=== PATIENT | male | born 1940 | race Caucasian/White ===

== ENCOUNTER 2016-11-02 11:16 | Inpatient (IN) | payer MEDICARE ==
[2016-11-02] VITALS (10 sets, daily range): BP systolic 136–203; BP diastolic 75–103; PULSE 76–122; RESP 16–24; TEMP 97.6–98.2; O2SAT 90–98
[~2016-11-02] VITALS: Ht 172.7 cm; Wt 118.0 kg
[~2016-11-02 11:16] MED LIST: ADVA250A INH; ALBU0.086 INH; ALBU17I INH; AMLO5TAB22 PO; ATEN-100 PO; ATOR10 PO; COZA50TA PO; DONE5TAB14 PO; HYDR-3129 PO; MEDR4PAK3 PO; PROS5TAB2 PO; TAMS0.4C67 PO; XANA1TAB6 PO; ZITH250T PO
[2016-11-02] MEDS ORDERED: RESP: ALBUTEROL 2.5 MG/IPRATROPIUM 0.5 MG NEB (SCH) INH ONE (11:45)
[2016-11-02] MEDS ORDERED: SODIUM CHLORIDE 0.9% FLUSH 10 ML FLUSH IVF PRN (11:45)
[2016-11-02] MEDS ORDERED: methylPREDNISolone SOD SUCC 125 MG/2 ML VIAL IVP ONE (11:45)
--- NOTE | 2016-11-02 11:52 | PD ---
HPI Chief Complaint: Respiratory Symptoms Time Seen by Provider: 11:34 Travel History International Travel<30 days: No Contact w/Intl Traveler<30days: No Traveled to known affect area: No History of Present Illness HPI This is a 76 year old gentleman with history of hypertension, hyperlipidemia, COPD, chronic back pain, presents today with complaints of progressive shortness of breath. The patient states he has walking pneumonia and has been on 2 different Z-Eric. He states he still having difficulty breathing. He reports a productive cough with yellow-green phlegm. He denies any fevers but does state that he has had sweats. He denies any chest pain, chest pressure. He does use a nebulizer at home however this has not helped. He has both state that he has had progressive shortness of breath over the last year and a half. They quit to being due to him changing from a stronger narcotic pain medicine to a lower potency medicine. No other complaints time my examination. PFSH Past Medical History COPD: Yes Hypertension: Yes Medical other: Yes (BPH) Respiratory: Yes (COPD) Influenza Vaccination: Yes Past Surgical History Appendectomy: Yes Social History Alcohol Use: No (FORMERLY (SOCIALLY)) Tobacco Use: No (QUIT 7 YEARS AGO) Substance Use: No Allergies-Medications (Allergen,Severity, Reaction): Coded Allergies: No Known Allergies (Unverified , 11/02/16) Reported Meds & Prescriptions Reported Meds & Active Scripts Active Reported Tamsulosin (Tamsulosin HCl) 0.4 Mg Cap 0.4 Mg PO HS Albuterol Neb (Albuterol Sulfate) 2.5 Mg/3 Ml Neb 2.5 Mg NEB Q4HR PRN Xanax (Alprazolam) 1 Mg Tab 1 Mg PO BID PRN Finasteride 5 Mg Tab 5 Mg PO DAILY Do not crush. Lipitor (Atorvastatin Calcium) 20 Mg Tab 20 Mg PO HS Tylenol-Codeine #4 (Acetaminophen-Codeine) 300-60 mg Tab 1 Tab PO Q4H PRN Review of Systems Except as stated in HPI: all other systems reviewed are Neg General / Constitutional: No: Fever HENT: No: Headaches, Lightheadedness Cardiovascular: No: Chest Pain or Discomfort, Palpitations Respiratory: Positive: Cough (productive yellow-green phlegm), Shortness of Breath, Wheezing Gastrointestinal: No: Nausea, Vomiting, Abdominal Pain Musculoskeletal: Positive: Pain (chronic back pain), No: Weakness Neurologic: No: Weakness, Dizziness, Headache Psychiatric: Positive: Anxiety (patient reports history of anxiety) Physical Exam Narrative GENERAL: Well-nourished, well-developed patient, in moderate respiratory discomfort. SKIN: Focused skin assessment warm/dry. HEAD: Normocephalic/atraumatic. EYES: No scleral icterus. No injection or drainage. NECK: Supple, trachea midline. CARDIOVASCULAR: Regular rate and rhythm without murmurs, gallops, or rubs. RESPIRATORY: Decreased breath sounds bilaterally. Minimal air exchange in the upper airways. No wheezes appreciated however there was minimal air exchange. GASTROINTESTINAL: Abdomen soft, non-tender, nondistended. MUSCULOSKELETAL: No cyanosis, or edema. NEUROLOGICAL: Awake and alert. Cranial nerves II through XII intact. Motor grossly within normal limits. Five out of 5 muscle strength in all muscle groups. Normal speech. Data Data Last Documented VS Vital Signs Date Time Temp Pulse Resp B/P Pulse Ox O2 Delivery O2 Flow Rate FiO2 11/02/16 12:30 94 2 11/02/16 12:30 21 11/02/16 11:57 99 24 165/84 Room Air 11/02/16 11:20 97.8 Orders Complete Blood Count With Diff (11/02/16 11:40) Basic Metabolic Panel (Bmp) (11/02/16 11:40) Ckmb (Isoenzyme) Profile (11/02/16 11:40) Troponin I (11/02/16 11:40) Arterial Blood Gas (Abg) (11/02/16 11:40) Iv Access Insert/Monitor (11/02/16 11:40) Electrocardiogram (11/02/16 11:40) Ecg Monitoring (11/02/16 11:40) Oximetry (11/02/16 11:40) Oxygen Administration (11/02/16 11:40) Chest, Pa & Lat (11/02/16 11:40) Sodium Chloride 0.9% Flush (Ns Flush) (11/02/16 11:45) Methylprednisolone So Succ Inj (Solumedr (11/02/16 11:45) Albuterol-Ipratropium Neb (Duoneb Neb) (11/02/16 11:45) Albuterol Neb (Albuterol Neb) (11/02/16 11:45) CKMB (11/02/16 11:52) CKMB% (11/02/16 11:52) Thyroid Stimulating Hormone (11/02/16 13:23) Admit Order (Ed Use Only) (11/02/16 13:24) Labs Laboratory Tests Test 11/02/16 11/02/16 11:40 11:52 Blood Gas Puncture Site LT RADIAL Blood Gas Patient Temperature 98.6 Blood Gas HCO3 27 mmol/L Blood Gas Base Excess 3.2 mmol/L Blood Gas Oxygen Saturation 94 % Arterial Blood pH 7.45 Arterial Blood Partial 40 mmHg Pressure CO2 Arterial Blood Partial 70 mmHG Pressure O2 Arterial Blood Oxygen Content 18.0 Vol % Arterial Blood 1.6 % Carboxyhemoglobin Arterial Blood Methemoglobin 0.4 % Blood Gas Hemoglobin 13.7 G/DL Oxygen Delivery Device RA White Blood Count 7.8 TH/MM3 Red Blood Count 4.37 MIL/MM3 Hemoglobin 13.6 GM/DL Hematocrit 41.1 % Mean Corpuscular Volume 94.1 FL Mean Corpuscular Hemoglobin 31.2 PG Mean Corpuscular Hemoglobin 33.2 % Concent Red Cell Distribution Width 12.8 % Platelet Count 179 TH/MM3 Mean Platelet Volume 8.7 FL Neutrophils (%) (Auto) 84.0 % Lymphocytes (%) (Auto) 8.2 % Monocytes (%) (Auto) 5.5 % Eosinophils (%) (Auto) 1.9 % Basophils (%) (Auto) 0.4 % Neutrophils # (Auto) 6.6 TH/MM3 Lymphocytes # (Auto) 0.6 TH/MM3 Monocytes # (Auto) 0.4 TH/MM3 Eosinophils # (Auto) 0.2 TH/MM3 Basophils # (Auto) 0.0 TH/MM3 CBC Comment DIFF FINAL Differential Comment Sodium Level 140 MEQ/L Potassium Level 4.0 MEQ/L Chloride Level 106 MEQ/L Carbon Dioxide Level 29.4 MEQ/L Anion Gap 5 MEQ/L Blood Urea Nitrogen 13 MG/DL Creatinine 1.04 MG/DL Estimat Glomerular Filtration 69 ML/MIN Rate Random Glucose 134 MG/DL Calcium Level 8.9 MG/DL Total Creatine Kinase 107 U/L Creatine Kinase MB 1.4 NG/ML Troponin I LESS THAN 0.02 NG/ML MDM Medical Decision Making Medical Screen Exam Complete: Yes Emergency Medical Condition: Yes Differential Diagnosis COPD exacerbation versus pneumonia versus anemia Narrative Course 76 year-old gentleman with history of COPD, hypertension, hyperlipidemia, who presents today with worsening shortness of breath. The patient had very little air movement on initial examination. He was given Solu-Medrol 125 mg I V times one dose. He's also been given nebulizer treatments 3 with the first is a DuoNeb. EKG shows A. fib which is new per patient and . Given this, and his COPD, I'm recommending that he be admitted to the hospitalist service. There is a call out to the [facility] hospitalist service for admission. We will continue the nebulizer treatments and steroids. There is a thyroid hormone level pending at this time. Diagnosis Primary Impression: New onset atrial fibrillation Additional Impression: COPD exacerbation Mike Jimenez MD Nov 02, 2016 11:52 Diagnosis Primary Impression: New onset atrial fibrillation Additional Impression: COPD exacerbation Mike Jimenez MD Nov 02, 2016 11:52
[2016-11-02] MEDS: RESP: ALBUTEROL 2.5 MG/3 ML NEB (SCH) INH ×2 (12:15→12:16)
[2016-11-02 12:19] LABS: AUTOMATED NEUTROPHIL # 6.6 TH/MM3 (1.8-7.7); BASOPHIL % 0.4 % (0.0-2.0); EOSINOPHIL # 0.2 TH/MM3 (0-0.4); EOSINOPHIL % 1.9 % (0.0-4.0); HEMATOCRIT 41.1 % (39.0-51.0); HEMO FLAGS DIFF FINAL; LYMPH % 8.2 % (9.0-44.0); LYMPHOCYTE # 0.6 TH/MM3 (1.0-4.8); MEAN CELL VOLUME 94.1 FL (80.0-100.0); MEAN CORPUSCULAR HEMOGLOBIN 31.2 PG (27.0-34.0); MEAN CORPUSCULAR HGB CONC 33.2 % (32.0-36.0); MONO % 5.5 % (0.0-8.0); PLATELET COUNT 179 TH/MM3 (150-450); RED BLOOD COUNT 4.37 MIL/MM3 (4.50-5.90); RED CELL DISTRIBUTION WIDTH 12.8 % (11.6-17.2); WHITE BLOOD COUNT 7.8 TH/MM3 (4.0-11.0)
[2016-11-02 12:33] LABS: BLOOD GAS BASE EXCESS 3.2 mmol/L (-2-2); BLOOD GAS CARBOXYHEMOGLOBIN 1.6 % (0-4); BLOOD GAS HCO3 27 mmol/L (22-26); BLOOD GAS METHEMOGLOBIN 0.4 % (0-2); BLOOD GAS O2 HGB SATURATION 94 % (90-100); BLOOD GAS PCO2 40 mmHg (38-42); BLOOD GAS PO2 70 mmHG (61-120); BLOOD GAS TOTAL HGB 13.7 G/DL (12.0-16.0); CRITICAL VALUE NO; DRAW SITE LT RADIAL; NUMBER OF ARTERIAL PUNCTURES 2; OXYGEN DEVICE RA; STAT YES; TEMP CORR TO 98.6; ULNAR PULSE Y
[2016-11-02 12:37] LABS: ANION GAP 5 MEQ/L (5-15); BICARBONATE 29.4 MEQ/L (21.0-32.0); BLOOD UREA NITROGEN 13 MG/DL (7-18); CHLORIDE 106 MEQ/L (98-107); GLOMERULAR FILTRATION RATE 69 ML/MIN (>89); SODIUM (NA) 140 MEQ/L (136-145)
[2016-11-02 12:40] LABS: CREATINE KINASE 107 U/L (39-308)
[2016-11-02 12:51] LABS: CKMB 1.4 NG/ML (0.5-3.6)
--- NOTE | 2016-11-02 13:52 | RADRPT ---
EXAM DATE/TIME: 11/02/2016 12:51 [place] COMPARISON: CHEST SINGLE AP, April 27, 2013, 11:30. INDICATIONS : Shortness of breath. MEDICAL HISTORY : Hypertension. Chronic obstructive pulmonary disease. Smoker. Pneumonia. SURGICAL HISTORY : Appendectomy. ENCOUNTER: Initial ACUITY: 1 week PAIN SCORE: 0/10 LOCATION: Bilateral chest FINDINGS: The heart is moderately enlarged. The central bronchial markings are fairly well delineated. There are linear opacities in the midlungs bilaterally which are chronic and were present on prior chest x- ray of March 2013. No focal consolidative infiltrate seen. No evidence of pneumothorax. Both c ostophrenic angles are well delineated. CONCLUSION: Cardiomegaly and scarring in the midlungs bilaterally, stable from 2012. No new focal infiltrates se en. Tyson Peña MD on November 02, 2016 at 13:49 Board Certified Radiologist. This report was verified electronically.
[2016-11-02] MEDS ORDERED: ONDANSETRON HCL 4 MG/2 ML VIAL IVP PRN (14:00)
[2016-11-02] MEDS ORDERED: ACETAMINOPHEN 325 MG TAB PO PRN (14:00)
[2016-11-02] MEDS ORDERED: SODIUM CHLORIDE 0.9% FLUSH 10 ML FLUSH IV FLUSH PRN (14:00)
[2016-11-02] MEDS ORDERED: ENOXAPARIN SODIUM 40 MG/0.4 ML SYRINGE SQ SCH (14:00)
[2016-11-02] MEDS ORDERED: NALOXONE HCL 0.4 MG/ML AMP IV PRN (14:00)
[2016-11-02] MEDS ORDERED: LIPI20TA PO (14:33)
[2016-11-02] MEDS ORDERED: TYLETAB36 PO (14:33)
[2016-11-02] MEDS ORDERED: TAMS0.4C4 PO (14:33)
[2016-11-02] MEDS ORDERED: FINA5TAB2 PO (14:33)
[2016-11-02] MEDS ORDERED: XANA1TAB2 PO (14:33)
[2016-11-02] MEDS ORDERED: ALBU0.08 NEB (14:33)
--- NOTE | 2016-11-02 14:53 | HHI.HP ---
[facility] Miguel Aleman, DO Admission Diagnosis New onset atrial firbrillation, copd exacerbation. Diagnoses: Chief Complaint: sob Travel History International Travel<30 Days: No Contact w/Intl Traveler <30 Da: No Traveled to Known Affected Are: No History of Present Illness This is a 76-year-old male with past medical history hypertension, hyperlipidemia, COPD on oxygen at night, chronic back pain. Patient presented to the emergency room with progressive shortness of breath for the last month and half. According to the patient, he was diagnosed with "walking pneumonia" by primary care physician and has been treated with 2 different Z-Paks. Indicates he has continued to feel poorly, more short of breath with any activity. He has a cough that is productive of yellow-green phlegm, he has chills at times but no fever. Has occasional chest pain that is relieved with [place] and burping. Denies any radiation of chest discomfort. He has been using nebulizers at home without any relief. Patient also endorses that he was recently transitioned from [place] to Tylenol No. 4 for chronic back pain and thinks that this lower potency of medications may have exacerbated his condition. Patient is difficult to examine, he's very anxious and at one point during the examination asked me to leave and not to examine him. During emergency room evaluation, patient was evaluated, vital signs were stable, temperature 90.7 a, pulse rate 99, respiratory rate 24, blood pressure 165/84, sats 93% on room air. ABGs were completed, pH 7.45, PCO2 40, PA O2 70, bicarbonate 27. CBC was essentially unremarkable, WBC 7.8, hemoglobin 13.6, hematocrit 41.1. BMP unremarkable. Troponin was negative. Chest x-ray significant for cardiomegaly, scarring in the mid lungs bilaterally stable from 2013. No new focal infiltrates. EKG was completed, patient was noted in A. fib , heart rate 97. This is a new onset, patient denies any prior history of dysrhythmia. Patient was given IV steroids and DuoNeb's. Patient wants to get moved out of the emergency room to a regular bed. He is complaining of back pain and increasing anxiety. Patient is admitted for further evaluation and treatment. Review of Systems ROS Limitations: Clinical Condition (anxious ), Uncooperative, Refused Endocrine: DENIES: Heat/cold intolerance, Polydipsia, Polyuria, Polyphagia Respiratory: COMPLAINS OF: Cough, Wheezing, Shortness of breath Cardiovascular: COMPLAINS OF: Chest pain Musculoskeletal: COMPLAINS OF: Back pain Psychiatric: COMPLAINS OF: Anxiety Past Family Social History Past Medical History HTN-doesn't take meds Enlarged prostate HLP COPD BPH Chronic back pain Anxiety Past Surgical History Back surgery x 4 Appendectomy Reported Medications Reported Meds & Active Scripts Active Reported Tamsulosin (Tamsulosin HCl) 0.4 Mg Cap 0.4 Mg PO HS Albuterol Neb (Albuterol Sulfate) 2.5 Mg/3 Ml Neb 2.5 Mg NEB Q4HR PRN Xanax (Alprazolam) 1 Mg Tab 1 Mg PO BID PRN Finasteride 5 Mg Tab 5 Mg PO DAILY Do not crush. Lipitor (Atorvastatin Calcium) 20 Mg Tab 20 Mg PO HS Tylenol-Codeine #4 (Acetaminophen-Codeine) 300-60 mg Tab 1 Tab PO Q4H PRN Allergies: Coded Allergies: No Known Allergies (Unverified , 11/02/16) Active Ordered Medications Inpatient Medications Acetaminophen (Tylenol) 650 mg Q4H PRN PO TEMP > 100.4; Start 11/02/16 at 14:00 Albuterol Sulfate (Albuterol Neb) 2.5 mg Q15M INH Last administered on t 12:16; Start 11/02/16 at 11:45; Stop 11/02/16 at 12:01; Status DC Albuterol/ Ipratropium (Duoneb Neb) 1 ampule Q8HR NEB NEB ; Start 11/02/16 at 16 :00 Atorvastatin Calcium (Lipitor) 20 mg HS PO ; Start 11/02/16 at 21:00 Azithromycin/ Sodium Chloride (Zithromax Inj/ NS 250 ml Inj) 250 ml @ 250 mls/ hr Q24H IV ; Start 11/02/16 at 14:00 Ceftriaxone Sodium 1000 mg/ Sodium Chloride 100 ml @ 200 mls/hr Q24H IV ; Start 11/02/16 at 15:00 Enoxaparin Sodium (Lovenox Inj) 40 mg Q24H SQ ; Start 11/02/16 at 14:00 Finasteride (Proscar) 5 mg DAILY PO ; Start 11/03/16 at 09:00 Methylprednisolone Sodium Succinate (SoluMEDROL INJ) 125 mg ONCE ONCE IVP Last administered on 11/02/16t 11:56; Start 11/02/16 at 11:45; Stop 11/02/16 at 11: 46; Status DC Methylprednisolone Sodium Succinate 40 mg 40 mg Q6HR IV PUSH ; Start 11/02/16 at 18:00 Naloxone HCl (Narcan Inj) 0.4 mg UNSCH PRN IV SEE LABEL COMMENTS; Start at 14:00 Ondansetron HCl (Zofran Inj) 4 mg Q6H PRN IVP NAUSEA OR VOMITING; Start at 14:00 Sodium Chloride (NS Flush) 2 ml BID IV FLUSH ; Start 11/02/16 at 21:00 Tamsulosin HCl (Flomax) 0.4 mg HS PO ; Start 11/02/16 at 21:00 Family History Unable to obtain Social History , lives with . Quit smoking 15 years ago. No ETOH, no substance abuse Physical Exam Vital Signs Vital Signs Date Time Temp Pulse Resp B/P Pulse Ox O2 Delivery O2 Flow Rate FiO2 11/02/16 14:51 76 16 168/85 95 11/02/16 12:30 93 21 11/02/16 11:57 99 24 165/84 90 Room Air 11/02/16 11:57 24 90 Room Air 11/02/16 11:20 97.8 118 24 203/103 94 Physical Exam GENERAL: This is a obese, very anxious male. SKIN: No rashes, ecchymoses or lesions. Cool and dry. HEAD: Atraumatic. Normocephalic. No temporal or scalp tenderness. EYES: Pupils equal round and reactive. Extraocular motions intact. No scleral icterus. No injection or drainage. ENT: Nose without bleeding, purulent drainage or septal hematoma. Throat without erythema, tonsillar hypertrophy or exudate. Uvula midline. Airway patent. NECK: Trachea midline. No JVD or lymphadenopathy. Supple, nontender, no meningeal signs. CARDIOVASCULAR: S1 and S2, irregularly irregular. Unable to detect any murmurs rubs or gallops. RESPIRATORY: Diminished, mild expiratory wheezing. GASTROINTESTINAL: Abdomen soft, non-tender, nondistended. No hepato-splenomegaly , or palpable masses. No guarding. MUSCULOSKELETAL: Extremities without clubbing, cyanosis, or edema. No joint tenderness, effusion, or edema noted. No calf tenderness. Negative Homans sign bilaterally. NEUROLOGICAL: Awake, alert oriented 3. No focal deficits. Very anxious. Laboratory Laboratory Tests Test 11/02/16 11/02/16 11:40 11:52 Blood Gas Puncture Site LT RADIAL Blood Gas Patient Temperature 98.6 Blood Gas HCO3 27 Blood Gas Base Excess 3.2 Blood Gas Oxygen Saturation 94 Arterial Blood pH 7.45 Arterial Blood Partial 40 Pressure CO2 Arterial Blood Partial 70 Pressure O2 Arterial Blood Oxygen Content 18.0 Arterial Blood 1.6 Carboxyhemoglobin Arterial Blood Methemoglobin 0.4 Blood Gas Hemoglobin 13.7 Oxygen Delivery Device RA White Blood Count 7.8 Red Blood Count 4.37 Hemoglobin 13.6 Hematocrit 41.1 Mean Corpuscular Volume 94.1 Mean Corpuscular Hemoglobin 31.2 Mean Corpuscular Hemoglobin 33.2 Concent Red Cell Distribution Width 12.8 Platelet Count 179 Mean Platelet Volume 8.7 Neutrophils (%) (Auto) 84.0 Lymphocytes (%) (Auto) 8.2 Monocytes (%) (Auto) 5.5 Eosinophils (%) (Auto) 1.9 Basophils (%) (Auto) 0.4 Neutrophils # (Auto) 6.6 Lymphocytes # (Auto) 0.6 Monocytes # (Auto) 0.4 Eosinophils # (Auto) 0.2 Basophils # (Auto) 0.0 CBC Comment DIFF FINAL Differential Comment Sodium Level 140 Potassium Level 4.0 Chloride Level 106 Carbon Dioxide Level 29.4 Anion Gap 5 Blood Urea Nitrogen 13 Creatinine 1.04 Estimat Glomerular Filtration 69 Rate Random Glucose 134 Calcium Level 8.9 Total Creatine Kinase 107 Creatine Kinase MB 1.4 Troponin I LESS THAN 0.02 Result Diagram: 11/02/16 1152 11/02/16 1152 Assessment and Plan Problem List: (1) COPD exacerbation (2) New onset atrial fibrillation (3) HTN (hypertension) (4) Hyperlipidemia (5) Chronic back pain (6) Anxiety Assessment and Plan Admit to Dr. Boss 76-year-old male presented to the emergency room with progressive shortness of breath, has underlying history of COPD oxygen dependent at night. Found with new onset A. fib. COPD exacerbation, failure of outpatient therapy, possible bronchitis -Continue with IV steroids, Solu-Medrol 40 mg IV every 6 Continue with empiric antibiotics Mucinex 600 mg by mouth twice a day Robitussin when necessary New-onset A. fib, with x-ray findings of cardiomegaly. Heart rate stable now initially 118, now 76. 2-D echo has been ordered Continue with serial cardiac enzymes Cardiology has been consulted -We'll check TSH Chronic back pain [place] will be started when necessary Anxiety Xanax when necessary has been ordered. Hyperlipidemia Continue with statins Hypertension, Patient not on any medications -We will add Clonidine when necessary Lovenox for DVT prophylaxis Home medications reviewed, initiated as indicated Plan of care has been discussed with the patient, attending and registered nurse. Further management of the patient will be dependent on the hospital course This patient was seen by myself and Dr. Boss, this H&P is written on her behalf Physician Certification 2 Midnight Certification Type: Admission for Inpatient Services Order for Inpatient Services The services are ordered in accordance with Medicare regulations or non- Medicare payer requirements, as applicable. In the case of services not specified as inpatient-only, they are appropriately provided as inpatient services in accordance with the 2-midnight benchmark. Estimated LOS (days): 2 2 days is the estimated time the patient will need to remain in the hospital, assuming treatment plan goals are met and no additional complications. Post-Hospital Plan: Home Problem Qualifiers (1) HTN (hypertension): Qualified Code: I10 - Essential hypertension (2) Hyperlipidemia: Qualified Code: E78.5 - Hyperlipidemia, unspecified hyperlipidemia type (3) Chronic back pain: Qualified Code: M54.9 - Chronic back pain, unspecified back location, unspecified back pain laterality Uzma Esqueda Nov 02, 2016 14:52
[2016-11-02] MEDS: RESP: ALBUTEROL 2.5 MG/IPRATROPIUM 0.5 MG NEB (SCH) NEB ×2 (15:07→23:26)
[2016-11-02] MEDS ORDERED: guaiFENesin/DEXTROMETHORPHAN 200 MG/20 MG/10 ML CUP PO PRN (15:15)
[2016-11-02] MEDS ORDERED: cloNIDine HCL 0.1 MG TAB PO PRN (15:30)
[2016-11-02] MEDS: AZITHROMYCIN INJ 500 MG in SODIUM CHLOR 0.9% 250 ML INJ 250 ML IV SCH (15:47)
[2016-11-02] MEDS: ACETAMINOPHEN/HYDROcodone 325 MG/5 MG TAB PO PRN ×2 (16:14→21:02)
[2016-11-02] MEDS: ALPRAZolam 0.5 MG TAB PO PRN ×3 (16:14→23:14)
[2016-11-02] MEDS ORDERED: DILTIAZEM INJ 125 MG in SODIUM CHLORIDE 0.9% INJ 100 ML IV SCH (16:30)
[2016-11-02] MEDS ORDERED: DILTIAZEM HCL 25 MG/5 ML VIAL IVP ONE (16:30)
[2016-11-02] MEDS: cefTRIAXone INJ 1,000 MG in SODIUM CHLORIDE 0.9% INJ 100 ML IV SCH (16:49)
[2016-11-02] MEDS: methylPREDNISolone SOD SUCC 40 MG/1 ML VIAL IV PUSH SCH ×2 (17:53→23:15)
[2016-11-02] MEDS: DILTIAZEM HCL 60 MG TAB PO SCH ×2 (17:54→23:14)
[2016-11-02] MEDS: FUROSEMIDE 40 MG/4 ML VIAL IV PUSH SCH (17:54)
[2016-11-02] MEDS: RESP: ALBUTEROL 2.5 MG/IPRATROPIUM 0.5 MG NEB (PRN) NEB (18:15)
[2016-11-02] MEDS: TAMSULOSIN HCL 0.4 MG CAP PO SCH (20:59)
[2016-11-02] MEDS: ATORVASTATIN 20 MG TAB PO SCH (20:59)
[2016-11-02] MEDS: guaiFENesin E.R. 600 MG TAB PO SCH (20:59)
[2016-11-02] MEDS: ENOXAPARIN SODIUM 100 MG/ML SYRINGE SQ SCH (21:00)
[2016-11-02] MEDS: SODIUM CHLORIDE 0.9% FLUSH 10 ML FLUSH IV FLUSH SCH (21:00)
[2016-11-03] VITALS (10 sets, daily range): BP systolic 150–161; BP diastolic 74–92; PULSE 87–120; RESP 18–20; TEMP 97.9–98.7; O2SAT 92–98
[2016-11-03] MEDS: RESP: ALBUTEROL 2.5 MG/IPRATROPIUM 0.5 MG NEB (PRN) NEB ×2 (04:14→19:39)
[2016-11-03] MEDS: methylPREDNISolone SOD SUCC 40 MG/1 ML VIAL IV PUSH SCH (05:28)
[2016-11-03] MEDS: DILTIAZEM HCL 60 MG TAB PO SCH ×4 (05:28→23:34)
[2016-11-03] MEDS: ACETAMINOPHEN/HYDROcodone 325 MG/5 MG TAB PO PRN ×2 (07:06→17:42)
--- NOTE | 2016-11-03 07:39 | MB ---
cc: JOSESITO VELEZ MD DATE OF CONSULTATION 11/02/2016 REASON FOR CONSULTATION Atrial fibrillation HISTORY OF PRESENT ILLNESS This is a 76-year-old gentleman with a history hypertension, hyperlipidemia, COPD, chronic oxygen at night and back pain who presents to the emergency department with progressive shortness of breath. He has been treated in the outpatient setting for progressive walking pneumonia with two separate antibiotic regimens. He had no symptomatic improvement and continues to have coughing with productive sputum and came into the emergency department. He does look like he is in mild distress with his respiratory distress and it was noted to be a new onset atrial fibrillation unknown duration with tachycardia. He states that in the past, he has had a prior chest x-ray which was common and not from cardiomegaly. He says he thinks he saw Dr. Griffith at [facility] back a few years ago and had an outpatient echocardiogram, but he does not know the results. He denies any chest pain. PAST MEDICAL HISTORY 1. Hypertension 2. BPH 3. Hyperlipidemia 4. COPD 5. Chronic back pain 6. Anxiety MEDICATIONS 1. Tamsulosin 2. Albuterol 3. Xanax 4. Finasteride 5. Lipitor 6. Tylenol ALLERGIES NO KNOWN DRUG ALLERGIES. REVIEW OF SYSTEMS A 12-point review of some was performed and is negative unless otherwise as noted in the history of present illness. VITAL SIGNS: Temperature is 97, pulse 112, blood pressure 165/81 mmHg. GENERAL: Alert and oriented x3 in mild distress. HEENT: Exam shows pupils are reactive to light and accommodation. Extraocular movements are intact. NECK: No elevation in jugular venous distension. No thyromegaly or lymphadenopathy. No carotid bruits. LUNGS: Clear to auscultation bilaterally. Decreased breath sounds throughout. Mild bibasilar crackles. CARDIOVASCULAR: Irregular irregular rhythm, 1/6 systolic murmur, distant heart sounds. ABDOMEN: Exam is obese. EXTREMITIES: Show no clubbing, cyanosis or edema. Good peripheral pulses. NEUROLOGIC: Cranial nerves intact. Motor and sensory grossly intact. LABORATORY DATA WBC is 7.8, hemoglobin 13.6, platelet count is 179. Sodium 140, potassium 4.0, BUN is 13, creatinine is 1.03, troponin is negative. Electrocardiogram shows atrial fibrillation, no significant ischemic changes. ASSESSMENT 1. Atrial fibrillation, probable new onset although unknown duration. 2. Hypertension 3. Hyperlipidemia 4. COPD 5. Pneumonia PLAN His atrial fibrillation is likely secondary to increased adrenergic tone with his respiratory distress. X-ray reads cardiomegaly. He has a prior history of apparent cardiomegaly and a prior echocardiogram, we do not know the results of. We will check a 2-D echocardiogram now. I suspect his respiratory symptoms are primarily infectious etiology, although he may have some bibasilar crackles in the setting of cardiomegaly may have also some component of congestive heart failure. I am going to give him a single dose of diuretic to see if we can improve his symptoms as he appears to be in mild distress. I am also going to add Cardizem p.o. and a Cardizem drip as needed for his tachycardia. I am going to increase his Lovenox to full therapeutic dosing. We will have to have a discussion with him about anticoagulation. His CHADS VASc is 3. MD JACQUELIN Kong/URMILA /4:36 PM /7:22 AM
[2016-11-03] MEDS: RESP: ALBUTEROL 2.5 MG/IPRATROPIUM 0.5 MG NEB (SCH) NEB ×2 (07:41→15:28)
--- NOTE | 2016-11-03 08:23 | PD.CARD.PN ---
Subjective Subjective Remarks breathing improved (Kailash Ochoa) Subjective Remarks (Mike Pacheco MD) Objective Vital Signs / I&O Vital Signs Date Time Temp Pulse Resp B/P Pulse Ox O2 Delivery O2 Flow Rate FiO2 11/03/16 07:56 108 11/03/16 07:41 94 21 11/03/16 03:58 97.9 114 20 159/86 95 11/03/16 03:57 87 11/02/16 23:25 98.2 100 24 136/75 97 11/02/16 20:13 97.9 94 24 150/77 96 11/02/16 19:22 93 21 11/02/16 18:23 168/94 11/02/16 16:58 97.6 122 24 164/94 97 11/02/16 16:16 112 20 165/81 98 Nasal Cannula 2 11/02/16 14:51 76 16 168/85 95 11/02/16 12:30 94 2 11/02/16 12:30 93 21 11/02/16 11:57 99 24 165/84 90 Room Air 11/02/16 11:57 24 90 Room Air 11/02/16 11:20 97.8 118 24 203/103 94 I/O 11/02/16 11/02/16 11/02/16 11/03/16 11/03/16 11/03/16 07:00 15:00 23:00 07:00 15:00 23:00 Intake Total 600 ml 0 ml 0 ml Output Total 250 ml 150 ml Balance 350 ml -150 ml 0 ml Intake Oral 600 ml 0 ml IV Total 0 ml Output Urine Total 250 ml 150 ml # Bowel Movements 0 0 Physical Exam GENERAL: Well-nourished, well-developed patient in no apparent distress. NECK: No JVD. No carotid bruit. CARDIOVASCULAR: IR IR tachy. S1/S2 no murmur, rub, or gallop. RESPIRATORY: No accessory muscle use. diminished to auscultation. Breath sounds equal bilaterally. GASTROINTESTINAL: Abdomen soft, non-tender, nondistended. MUSCULOSKELETAL: Extremities without clubbing, cyanosis, or edema. Laboratory Laboratory Tests Test 11/02/16 11/02/16 11/02/16 11/03/16 11:40 11:52 15:03 00:20 Blood Gas Puncture Site LT RADIAL Blood Gas Patient Temperature 98.6 Blood Gas HCO3 27 mmol/L Blood Gas Base Excess 3.2 mmol/L Blood Gas Oxygen Saturation 94 % Arterial Blood pH 7.45 Arterial Blood Partial 40 mmHg Pressure CO2 Arterial Blood Partial 70 mmHG Pressure O2 Arterial Blood Oxygen Content 18.0 Vol % Arterial Blood 1.6 % Carboxyhemoglobin Arterial Blood Methemoglobin 0.4 % Blood Gas Hemoglobin 13.7 G/DL Oxygen Delivery Device RA White Blood Count 7.8 TH/MM3 Red Blood Count 4.37 MIL/MM3 Hemoglobin 13.6 GM/DL Hematocrit 41.1 % Mean Corpuscular Volume 94.1 FL Mean Corpuscular Hemoglobin 31.2 PG Mean Corpuscular Hemoglobin 33.2 % Concent Red Cell Distribution Width 12.8 % Platelet Count 179 TH/MM3 Mean Platelet Volume 8.7 FL Neutrophils (%) (Auto) 84.0 % Lymphocytes (%) (Auto) 8.2 % Monocytes (%) (Auto) 5.5 % Eosinophils (%) (Auto) 1.9 % Basophils (%) (Auto) 0.4 % Neutrophils # (Auto) 6.6 TH/MM3 Lymphocytes # (Auto) 0.6 TH/MM3 Monocytes # (Auto) 0.4 TH/MM3 Eosinophils # (Auto) 0.2 TH/MM3 Basophils # (Auto) 0.0 TH/MM3 CBC Comment DIFF FINAL Differential Comment Sodium Level 140 MEQ/L Potassium Level 4.0 MEQ/L Chloride Level 106 MEQ/L Carbon Dioxide Level 29.4 MEQ/L Anion Gap 5 MEQ/L Blood Urea Nitrogen 13 MG/DL Creatinine 1.04 MG/DL Estimat Glomerular Filtration 69 ML/MIN Rate Random Glucose 134 MG/DL Calcium Level 8.9 MG/DL Total Creatine Kinase 107 U/L Creatine Kinase MB 1.4 NG/ML Troponin I LESS THAN 0.02 LESS THAN 0.02 LESS THAN 0.02 NG/ML NG/ML NG/ML Thyroid Stimulating Hormone 0.607 uIU/ML 3rd Gen (Kailash Ochoa) Assessment and Plan Problem List: (1) New onset atrial fibrillation Assessment and Plan HR is not controlled. Will add digoxin 125 mcg daily.I would avoid beta blockers in the face of his COPD. Will start Coumadin 5 mg daily and INR in 72 hours (Kailash Ochoa) Assessment and Plan breathing improved. more pulmonary than cardiac. change lasix to PO afib rvr - increase cardizem 90 q 6. convert to long acting upon DC. dig 0.25 mg daily. check dig level. anticoagulation - he is not interested in coumadin with INRs but will consider newer Novel agent. start Xarelto. DC planning for tomorrow FU PCP on DC (Mike Pacheco MD) Kailash Ochoa Nov 03, 2016 08:23 Mike Pacheco MD Nov 03, 2016 13:51
[2016-11-03] MEDS: ALPRAZolam 0.5 MG TAB PO PRN ×2 (08:37→17:42)
[2016-11-03] MEDS: FINASTERIDE 5 MG TAB PO SCH (08:38)
[2016-11-03] MEDS: SODIUM CHLORIDE 0.9% FLUSH 10 ML FLUSH IV FLUSH SCH ×2 (08:38→20:18)
[2016-11-03] MEDS: FUROSEMIDE 40 MG/4 ML VIAL IV PUSH SCH (08:38)
[2016-11-03] MEDS: guaiFENesin E.R. 600 MG TAB PO SCH ×2 (08:38→20:15)
[2016-11-03] MEDS: ENOXAPARIN SODIUM 100 MG/ML SYRINGE SQ SCH (08:38)
[2016-11-03] MEDS ORDERED: DIGOXIN 0.125 MG TAB PO SCH (09:00)
[2016-11-03] MEDS ORDERED: PNEUMOCOCCAL POLYVALENT INJ 25 MCG/0.5 ML SYR IM ONE (10:00)
--- NOTE | 2016-11-03 11:03 | HHI.PR ---
Subjective Subjective Remarks less sob no wheezing no cp anxiety slightly improved at times very angry with staff afib, HR 100s no fever Review of Systems Constitutional Constitutional Remarks 12 point ROS completed, negative except as noted above Vitals/Results Intake & Output 11/02/16 11/02/16 11/03/16 15:00 23:00 07:00 Intake Total 600 ml 0 ml Output Total 250 ml 150 ml Balance 350 ml -150 ml Intake Oral 600 ml 0 ml Output Urine Total 250 ml 150 ml # Bowel Movements 0 0 Vital Signs Vital Signs Date Time Temp Pulse Resp B/P Pulse Ox O2 Delivery O2 Flow Rate FiO2 11/03/16 08:00 98.1 106 18 153/74 92 11/03/16 07:56 108 11/03/16 07:41 94 21 11/03/16 03:58 97.9 114 20 159/86 95 11/03/16 03:57 87 11/02/16 23:25 98.2 100 24 136/75 97 11/02/16 20:13 97.9 94 24 150/77 96 11/02/16 19:22 93 21 11/02/16 18:23 168/94 11/02/16 16:58 97.6 122 24 164/94 97 11/02/16 16:16 112 20 165/81 98 Nasal Cannula 2 11/02/16 14:51 76 16 168/85 95 11/02/16 12:30 94 2 11/02/16 12:30 93 21 11/02/16 11:57 99 24 165/84 90 Room Air 11/02/16 11:57 24 90 Room Air 11/02/16 11:20 97.8 118 24 203/103 94 CBC/BMP: 11/02/16 1152 11/02/16 1152 Lab Results Laboratory Tests Test 11/02/16 11/02/16 11/02/16 11/03/16 11:40 11:52 15:03 00:20 Blood Gas Puncture Site LT RADIAL Blood Gas Patient Temperature 98.6 Blood Gas HCO3 27 mmol/L Blood Gas Base Excess 3.2 mmol/L Blood Gas Oxygen Saturation 94 % Arterial Blood pH 7.45 Arterial Blood Partial 40 mmHg Pressure CO2 Arterial Blood Partial 70 mmHG Pressure O2 Arterial Blood Oxygen Content 18.0 Vol % Arterial Blood 1.6 % Carboxyhemoglobin Arterial Blood Methemoglobin 0.4 % Blood Gas Hemoglobin 13.7 G/DL Oxygen Delivery Device RA White Blood Count 7.8 TH/MM3 Red Blood Count 4.37 MIL/MM3 Hemoglobin 13.6 GM/DL Hematocrit 41.1 % Mean Corpuscular Volume 94.1 FL Mean Corpuscular Hemoglobin 31.2 PG Mean Corpuscular Hemoglobin 33.2 % Concent Red Cell Distribution Width 12.8 % Platelet Count 179 TH/MM3 Mean Platelet Volume 8.7 FL Neutrophils (%) (Auto) 84.0 % Lymphocytes (%) (Auto) 8.2 % Monocytes (%) (Auto) 5.5 % Eosinophils (%) (Auto) 1.9 % Basophils (%) (Auto) 0.4 % Neutrophils # (Auto) 6.6 TH/MM3 Lymphocytes # (Auto) 0.6 TH/MM3 Monocytes # (Auto) 0.4 TH/MM3 Eosinophils # (Auto) 0.2 TH/MM3 Basophils # (Auto) 0.0 TH/MM3 CBC Comment DIFF FINAL Differential Comment Sodium Level 140 MEQ/L Potassium Level 4.0 MEQ/L Chloride Level 106 MEQ/L Carbon Dioxide Level 29.4 MEQ/L Anion Gap 5 MEQ/L Blood Urea Nitrogen 13 MG/DL Creatinine 1.04 MG/DL Estimat Glomerular Filtration 69 ML/MIN Rate Random Glucose 134 MG/DL Calcium Level 8.9 MG/DL Total Creatine Kinase 107 U/L Creatine Kinase MB 1.4 NG/ML Troponin I LESS THAN 0.02 LESS THAN 0.02 LESS THAN 0.02 NG/ML NG/ML NG/ML Thyroid Stimulating Hormone 0.607 uIU/ML 3rd Gen Physical Exam General General Appearance: Well Developed, Comfortable, Anxious, Obese Eyes Eye Exam: Pupils Equal, Pupils Reactive Ears & Nose Ears & Nose Exam: Nasal Mucosa [employer] Throat Throat Exam: Oral Mucosa [employer] & Moist Neck Neck Exam: Neck Supple, Trachea Midline Pulmonary Resp Exam: Decreased Bases, Diminished Breath Sounds, Poor Inspiratory Effort Cardiology CV Exam: Irregular, Arrhythmia, Tachycardia Gastrointestinal/Abdomen GI Exam: Soft, Non-Tender, Bowel Sounds Present, Non-Distended Musculoskeletal MS Exam: Joints Intact Integumentary Skin Exam: Warm, Dry Extremeties Extremities Exam: Pedal Pulses Palpable, Trace Edema Neurologic Neuro Exam: Alert, Awake, Oriented, Speech Clear, Moving All Extremities, No Focal Deficits Psychiatric Psych Exam: Appropriate Responses VTE Prophylaxis VTE Prophylaxis Meds: Coumadin, Lovenox Assessment/Plan Problem List: (1) New onset atrial fibrillation (2) Anxiety (3) Hyperlipidemia (4) HTN (hypertension) (5) COPD exacerbation (6) Chronic back pain (7) Cardiomegaly Assessment/Plan 76-year-old male presented to the emergency room with progressive shortness of breath, has underlying history of COPD oxygen dependent at night. Found with new onset A. fib. COPD exacerbation, failure of outpatient therapy, possible bronchitis -change to PO steroids Continue with empiric antibiotics Mucinex 600 mg by mouth twice a day Robitussin when necessary New-onset A. fib, with x-ray findings of cardiomegaly. Heart rate 100s, afib. Poss. component of CHF -continue with Lasix 40 mg IV daily 2-D echo has been ordered cardiac enzymes negative -appreciate cardiology input, Dr. Pacheco evaluated. Recommends anticoagulation, full dose Lovenox for now and start Coumadin today. Follow INR today. -pharmacy to dose coumadin, INR daily -continue Dig and Cardizem PO -TSH okay Chronic back pain [place] will be started when necessary Anxiety Xanax when necessary has been ordered. Hyperlipidemia Continue with statins Hypertension, Patient not on any medications - Clonidine when necessary Lovenox/Coumadin for DVT prophylaxis continue with above treatment HR not controlled yet pt. doesn't appear to have good insight, wants to know if he is going home today. Explained HR not controlled and needs anticoagulation. Very anxious D/W RN D/W Dr. Boss D/W pt. This patient was seen by myself and Dr. Boss, this note is written on her behalf Problem Qualifiers (1) Hyperlipidemia: Qualified Code: E78.5 - Hyperlipidemia, unspecified hyperlipidemia type (2) HTN (hypertension): Qualified Code: I10 - Essential hypertension (3) Chronic back pain: Qualified Code: M54.9 - Chronic back pain, unspecified back location, unspecified back pain laterality Uzma Esqueda Nov 03, 2016 11:03
[2016-11-03] MEDS ORDERED: IBUPROFEN 400 MG TAB PO ONE (12:00)
--- NOTE | 2016-11-03 12:28 | EC ---
Study Study Date:11/03/2016 STUDY CONCLUSIONS SUMMARY - Left ventricle: The cavity size was normal. Wall thickness was increased in a pattern of mild LVH. Systolic function was normal. The estimated ejection fraction was in the range of 60% to 65%. Wall motion was normal; there were no regional wall motion abnormalities. The study was not technically sufficient to allow evaluation of LV diastolic dysfunction due to atrial fibrillation. - Aortic valve: A bicuspid morphology cannot be excluded; mildly thickened, mildly calcified leaflets. Transvalvular velocity was increased. There was mild stenosis. - Mitral valve: Calcified annulus. Mild regurgitation. - Left atrium: The atrium was mildly dilated. - Right atrium: The atrium was mildly dilated. - Tricuspid valve: Mild regurgitation. If LV function is below 40, please consider prescribing an ACEI or ARB or document rationale for non-use. PROCEDURE DATA STUDY STATUS: Elective. Procedure: Transthoracic echocardiography. Image quality was good. Scanning was performed from the parasternal, apical, and subcostal acoustic windows. Study completion: The patient tolerated the procedure well. Transthoracic echocardiography. M-mode, complete 2D, complete spectral Doppler, and color Doppler. Patient status: Inpatient. CARDIAC ANATOMY LEFT VENTRICLE: The cavity size was normal. Wall thickness was increased in a pattern of mild LVH. Systolic function was normal. The estimated ejection fraction was in the range of 60% to 65%. Wall motion was normal; there were no regional wall motion abnormalities. The study was not technically sufficient to allow evaluation of LV diastolic dysfunction due to atrial fibrillation. AORTIC VALVE: A bicuspid morphology cannot be excluded; mildly thickened, mildly calcified leaflets. Doppler: Transvalvular velocity was increased. There was mild stenosis. Trace to mild regurgitation. AORTA: Aortic root: The aortic root was normal in size. MITRAL VALVE: Calcified annulus. Doppler: Transvalvular velocity was within the normal range. There was no evidence for stenosis. Mild regurgitation. LEFT ATRIUM: The atrium was mildly dilated. RIGHT VENTRICLE: The cavity size was normal. Wall thickness was normal. PULMONIC VALVE: Doppler: Transvalvular velocity was within the normal range. There was no evidence for stenosis. No regurgitation. TRICUSPID VALVE: Structurally normal valve. Doppler: Transvalvular velocity was within the normal range. Mild regurgitation. PULMONARY ARTERY: The main pulmonary artery was normal-sized. Systolic pressure was within the normal range. RIGHT ATRIUM: The atrium was mildly dilated. PERICARDIUM: There was no pericardial effusion. SYSTEMIC VEINS: Inferior vena cava: The vessel was normal in size. Prepared and signed by Mike Pacehco [id number]
[2016-11-03 12:42] LABS: AUTOMATED NEUTROPHIL # 14.4 TH/MM3 (1.8-7.7); BASOPHIL % 0.1 % (0.0-2.0); HEMATOCRIT 42.7 % (39.0-51.0); HEMO FLAGS DIFF FINAL; LYMPH % 2.7 % (9.0-44.0); LYMPHOCYTE # 0.4 TH/MM3 (1.0-4.8); MEAN CELL VOLUME 93.8 FL (80.0-100.0); MEAN CORPUSCULAR HEMOGLOBIN 30.9 PG (27.0-34.0); MEAN CORPUSCULAR HGB CONC 32.9 % (32.0-36.0); MONO % 1.8 % (0.0-8.0); NEUT % 95.4 % (16.0-70.0); PLATELET COUNT 202 TH/MM3 (150-450); RED BLOOD COUNT 4.55 MIL/MM3 (4.50-5.90); RED CELL DISTRIBUTION WIDTH 12.5 % (11.6-17.2); WHITE BLOOD COUNT 15.1 TH/MM3 (4.0-11.0)
[2016-11-03] MEDS ORDERED: PILL SPLITTER OTHER PRN (13:00)
[2016-11-03 13:04] LABS: PROTHROMBIN TIME - PATIENT 11.5 SEC (9.8-11.6)
[2016-11-03 13:16] LABS: BICARBONATE 30.7 MEQ/L (21.0-32.0); POTASSIUM 3.5 MEQ/L (3.5-5.1)
[2016-11-03] MEDS: RIVAROXABAN 20 MG TAB PO SCH (14:00)
[2016-11-03] MEDS: AZITHROMYCIN INJ 500 MG in SODIUM CHLOR 0.9% 250 ML INJ 250 ML IV SCH (14:37)
[2016-11-03] MEDS: cefTRIAXone INJ 1,000 MG in SODIUM CHLORIDE 0.9% INJ 100 ML IV SCH (14:38)
[2016-11-03] MEDS ORDERED: WARFARIN SOD 5 MG TAB PO SCH (16:00)
[2016-11-03] MEDS: ATORVASTATIN 20 MG TAB PO SCH (20:15)
[2016-11-03] MEDS: TAMSULOSIN HCL 0.4 MG CAP PO SCH (20:15)
[2016-11-03] MEDS: ZOLPIDEM TARTRATE 10 MG TAB PO PRN (20:15)
--- NOTE | 2016-11-03 21:30 | EKG ---
Date Performed: 11/02/2016 Time Performed: 12:08:04 PTAGE: 76 years EKG: ATRIAL FIBRILLATION POSSIBLE RIGHT VENTRICULAR CONDUCTION DELAY When compared to previous t racing, the patient is now in atrial Fibrillation. ABNORMAL RHYTHM ECG PREVIOUS TRACING : 04/27/2013 11.39 DOCTOR: Ever Anderson Interpretating Date/Time 11/03/2016 21:28:53
[2016-11-04] VITALS (12 sets, daily range): BP systolic 136–157; BP diastolic 65–77; PULSE 86–110; RESP 20; TEMP 97.6–99.6; O2SAT 93–99
[2016-11-04] MEDS: RESP: ALBUTEROL 2.5 MG/IPRATROPIUM 0.5 MG NEB (SCH) NEB ×4 (00:30→23:45)
[2016-11-04] MEDS: ALPRAZolam 0.5 MG TAB PO PRN ×2 (05:12→21:43)
[2016-11-04] MEDS: ACETAMINOPHEN/HYDROcodone 325 MG/5 MG TAB PO PRN ×2 (05:12→18:42)
[2016-11-04] MEDS: DILTIAZEM HCL 60 MG TAB PO SCH ×4 (05:13→23:36)
--- NOTE | 2016-11-04 06:47 | PD.CARD.PN ---
Subjective Subjective Remarks no overnight events telemetry Afib Objective Medications Current Medications Medications (Trade) Dose Ordered Sig/Mic Route Start Time Stop Time Status Last Admin (NS Flush) 2 ml UNSCH PRN IV FLUSH 11/02/16 14:00 (NS Flush) 2 ml BID IV FLUSH 11/02/16 21:00 11/03/16 20:18 (Tylenol) 650 mg Q4H PRN PO 11/02/16 14:00 (Zofran Inj) 4 mg Q6H PRN IVP 11/02/16 14:00 Naloxone HCl 0.4 mg 0.4 mg UNSCH PRN IV 11/02/16 14:00 Ceftriaxone Sodium 1000 mg/ Sodium Chloride 100 ml @ 200 mls/hr Q24H IV 11/02/16 15:00 11/03/16 14:38 (Zithromax Inj/ NS 250 ml Inj) 250 ml @ 250 mls/hr Q24H IV 11/02/16 14:00 11/03/16 14:37 (Lipitor) 20 mg HS PO 11/02/16 21:00 11/03/16 20:15 (Proscar) 5 mg DAILY PO 11/03/16 09:00 11/03/16 08:38 (Flomax) 0.4 mg HS PO 11/02/16 21:00 11/03/16 20:15 (Mize 5-325 Mg) 1 tab Q6H PRN PO 11/02/16 15:15 11/04/16 05:12 (Xanax) 0.5 mg Q8H PRN PO 11/02/16 15:15 11/04/16 05:12 (Mucinex Er) 600 mg BID PO 11/02/16 21:00 11/03/16 20:15 (Robitussin Dm 200-20 Mg/10 ml Liq) 10 ml Q6H PRN PO 11/02/16 15:15 (Catapres) 0.1 mg Q6H PRN PO 11/02/16 15:30 (Deltasone) 30 mg DAILY PO 11/04/16 09:00 (Ambien) 10 mg HS PRN PO 11/03/16 11:45 11/03/16 20:15 (Pill Splitter) 1 ea UNSCH PRN OTHER 11/03/16 13:00 (Xarelto) 20 mg DAILY PO 11/03/16 14:00 11/03/16 14:00 (Lanoxin) 0.25 mg DAILY PO 11/04/16 09:00 (Cardizem) 90 mg Q6HR PO 11/03/16 18:00 11/04/16 05:13 (Lasix) 40 mg DAILY PO 11/04/16 09:00 Vital Signs / I&O Vital Signs Date Time Temp Pulse Resp B/P Pulse Ox O2 Delivery O2 Flow Rate FiO2 11/04/16 04:00 98.9 109 20 136/65 93 11/04/16 01:04 105 11/04/16 00:32 99 Nasal Cannula 2.00 11/04/16 00:04 97.6 88 20 140/65 95 11/03/16 20:00 98.6 120 20 157/77 95 11/03/16 19:39 98 Nasal Cannula 2.00 11/03/16 18:31 118 11/03/16 16:00 98.0 120 20 161/90 94 11/03/16 12:00 98.7 118 20 150/92 96 11/03/16 08:00 98.1 106 18 153/74 92 11/03/16 07:56 108 11/03/16 07:41 94 21 I/O 11/03/16 11/03/16 11/03/16 11/04/16 11/04/16 11/04/16 07:00 15:00 23:00 07:00 15:00 23:00 Intake Total 0 ml 480 ml 600 ml 720 ml Output Total 150 ml 600 ml Balance -150 ml -120 ml 600 ml 720 ml Intake Oral 0 ml 480 ml 600 ml 720 ml IV Total 0 ml Output Urine Total 150 ml 600 ml # Voids 3 2 # Bowel Movements 0 1 0 0 Physical Exam GENERAL: Awake, alert, and oriented x 3. Non-focal. SKIN: Warm and dry. HEAD: Normocephalic. EYES: No scleral icterus. No injection or drainage. NECK: Supple, trachea midline. No JVD or lymphadenopathy. CARDIOVASCULAR: Irr Irr 1/6 NOE no gallops, or rubs. RESPIRATORY: Breath sounds equal bilaterally. No accessory muscle use. GASTROINTESTINAL: Abdomen soft, non-tender, nondistended. EXTREMITIES: No cyanosis, or edema. Laboratory Laboratory Tests Test 11/03/16 11/03/16 12:15 12:43 White Blood Count 15.1 TH/MM3 Red Blood Count 4.55 MIL/MM3 Hemoglobin 14.1 GM/DL Hematocrit 42.7 % Mean Corpuscular Volume 93.8 FL Mean Corpuscular Hemoglobin 30.9 PG Mean Corpuscular Hemoglobin 32.9 % Concent Red Cell Distribution Width 12.5 % Platelet Count 202 TH/MM3 Mean Platelet Volume 8.6 FL Neutrophils (%) (Auto) 95.4 % Lymphocytes (%) (Auto) 2.7 % Monocytes (%) (Auto) 1.8 % Eosinophils (%) (Auto) 0.0 % Basophils (%) (Auto) 0.1 % Neutrophils # (Auto) 14.4 TH/MM3 Lymphocytes # (Auto) 0.4 TH/MM3 Monocytes # (Auto) 0.3 TH/MM3 Eosinophils # (Auto) 0.0 TH/MM3 Basophils # (Auto) 0.0 TH/MM3 CBC Comment DIFF FINAL Differential Comment Sodium Level 139 MEQ/L Potassium Level 3.5 MEQ/L Chloride Level 99 MEQ/L Carbon Dioxide Level 30.7 MEQ/L Anion Gap 9 MEQ/L Blood Urea Nitrogen 24 MG/DL Creatinine 1.39 MG/DL Estimat Glomerular Filtration 50 ML/MIN Rate Random Glucose 240 MG/DL Calcium Level 9.4 MG/DL Prothrombin Time 11.5 SEC Prothromb Time International 1.0 RATIO Ratio Imaging Last Impressions Chest X-Ray 11/02/16 1140 Signed Impressions: Service Date/Time: October 12:51 - CONCLUSION: Cardiomegaly and scarring in the midlungs bilaterally, stable from 2013. No new focal infiltrates seen. Tyson Peña MD Assessment and Plan Problem List: (1) New onset atrial fibrillation Assessment and Plan: Cont rate control with Cardizem. Transition to long acting Cardizem Cont digoxin Cont oral anticoagulation Mark Kee MD Nov 04, 2016 06:47
[2016-11-04 08:14] LABS: AUTOMATED NEUTROPHIL # 15.4 TH/MM3 (1.8-7.7); BASOPHIL % 0.1 % (0.0-2.0); HEMATOCRIT 41.6 % (39.0-51.0); HEMO FLAGS DIFF FINAL; LYMPH % 3.8 % (9.0-44.0); LYMPHOCYTE # 0.6 TH/MM3 (1.0-4.8); MEAN CELL VOLUME 93.9 FL (80.0-100.0); MEAN CORPUSCULAR HEMOGLOBIN 30.8 PG (27.0-34.0); MEAN CORPUSCULAR HGB CONC 32.8 % (32.0-36.0); MONO % 5.3 % (0.0-8.0); NEUT % 90.8 % (16.0-70.0); PLATELET COUNT 205 TH/MM3 (150-450); RED BLOOD COUNT 4.44 MIL/MM3 (4.50-5.90); RED CELL DISTRIBUTION WIDTH 12.8 % (11.6-17.2)
[2016-11-04 08:18] LABS: INTERNATIONAL NORMALIZED RATIO 1.2 RATIO
[2016-11-04 08:35] LABS: BICARBONATE 30.4 MEQ/L (21.0-32.0); MAGNESIUM 2.3 MG/DL (1.5-2.5)
[2016-11-04 08:49] LABS: DIGOXIN 0.2 NG/ML (0.8-2.0)
[2016-11-04] MEDS: FUROSEMIDE 40 MG TAB PO SCH (08:59)
[2016-11-04] MEDS: FINASTERIDE 5 MG TAB PO SCH (09:00)
[2016-11-04] MEDS: DIGOXIN 0.25 MG TAB PO SCH (09:00)
[2016-11-04] MEDS: SODIUM CHLORIDE 0.9% FLUSH 10 ML FLUSH IV FLUSH SCH ×2 (09:00→21:44)
[2016-11-04] MEDS: predniSONE 20 MG TAB PO SCH (09:00)
[2016-11-04] MEDS: guaiFENesin E.R. 600 MG TAB PO SCH ×2 (09:00→21:44)
[2016-11-04] MEDS: RIVAROXABAN 20 MG TAB PO SCH (09:00)
--- NOTE | 2016-11-04 12:01 | HHI.PR ---
Subjective Subjective Remarks Resting in bed Awake No family present Heart rate greater than 100 at times currently 112 A. fib SOB mild (Marine Lawrence) Review of Systems Constitutional Constitutional: Fatigue, Weakness Constitutional Remarks 10 point ROS done positives noted at the systems negative are unremarkable ( Marine Lawrence) Pulmonary Respiratory: Coughing, Shortness of Breath (mild) (Marine Lawrence) Musculoskeletal MS: Weakness, Stiffness (Marine Lawrence) Psychiatric Psychiatric: Agitation, Anxiety (at times) (Marine Lawrence) Vitals/Results Intake & Output 11/03/16 11/03/16 11/04/16 15:00 23:00 07:00 Intake Total 480 ml 600 ml 720 ml Output Total 600 ml Balance -120 ml 600 ml 720 ml Intake Oral 480 ml 600 ml 720 ml IV Total 0 ml Output Urine Total 600 ml # Voids 3 2 # Bowel Movements 1 0 0 Vital Signs Vital Signs Date Time Temp Pulse Resp B/P Pulse Ox O2 Delivery O2 Flow Rate FiO2 11/04/16 09:17 105 11/04/16 08:03 98.4 110 20 155/68 95 11/04/16 07:30 98 Nasal Cannula 2.00 11/04/16 06:46 20 11/04/16 04:00 98.9 109 20 136/65 93 11/04/16 01:04 105 11/04/16 00:32 99 Nasal Cannula 2.00 11/04/16 00:04 97.6 88 20 140/65 95 11/03/16 20:00 98.6 120 20 157/77 95 11/03/16 19:39 98 Nasal Cannula 2.00 11/03/16 18:31 118 11/03/16 16:00 98.0 120 20 161/90 94 (Marine Lawrence) CBC/BMP: 11/04/16 0615 11/04/16 0615 Lab Results Laboratory Tests Test 11/03/16 11/03/16 11/04/16 12:15 12:43 06:15 White Blood Count 15.1 TH/MM3 17.0 TH/MM3 Red Blood Count 4.55 MIL/MM3 4.44 MIL/MM3 Hemoglobin 14.1 GM/DL 13.6 GM/DL Hematocrit 42.7 % 41.6 % Mean Corpuscular Volume 93.8 FL 93.9 FL Mean Corpuscular Hemoglobin 30.9 PG 30.8 PG Mean Corpuscular Hemoglobin 32.9 % 32.8 % Concent Red Cell Distribution Width 12.5 % 12.8 % Platelet Count 202 TH/MM3 205 TH/MM3 Mean Platelet Volume 8.6 FL 9.0 FL Neutrophils (%) (Auto) 95.4 % 90.8 % Lymphocytes (%) (Auto) 2.7 % 3.8 % Monocytes (%) (Auto) 1.8 % 5.3 % Eosinophils (%) (Auto) 0.0 % 0.0 % Basophils (%) (Auto) 0.1 % 0.1 % Neutrophils # (Auto) 14.4 TH/MM3 15.4 TH/MM3 Lymphocytes # (Auto) 0.4 TH/MM3 0.6 TH/MM3 Monocytes # (Auto) 0.3 TH/MM3 0.9 TH/MM3 Eosinophils # (Auto) 0.0 TH/MM3 0.0 TH/MM3 Basophils # (Auto) 0.0 TH/MM3 0.0 TH/MM3 CBC Comment DIFF FINAL DIFF FINAL Differential Comment Sodium Level 139 MEQ/L 140 MEQ/L Potassium Level 3.5 MEQ/L 4.0 MEQ/L Chloride Level 99 MEQ/L 102 MEQ/L Carbon Dioxide Level 30.7 MEQ/L 30.4 MEQ/L Anion Gap 9 MEQ/L 8 MEQ/L Blood Urea Nitrogen 24 MG/DL 29 MG/DL Creatinine 1.39 MG/DL 1.19 MG/DL Estimat Glomerular Filtration 50 ML/MIN 59 ML/MIN Rate Random Glucose 240 MG/DL 131 MG/DL Calcium Level 9.4 MG/DL 9.2 MG/DL Prothrombin Time 11.5 SEC 13.0 SEC Prothromb Time International 1.0 RATIO 1.2 RATIO Ratio Magnesium Level 2.3 MG/DL Digoxin Level 0.2 NG/ML Imaging Remarks Last Impressions Chest X-Ray 11/02/16 1140 Signed Impressions: Service Date/Time: October 12:51 - CONCLUSION: Cardiomegaly and scarring in the midlungs bilaterally, stable from 2012. No new focal infiltrates seen. Tyson Peña MD Current Medications Active Medications Digoxin (Lanoxin) 0.25 mg DAILY PO Last administered on 11/04/16 09:00; Admin Dose 0.25 MG; Start 11/04/16 at 09:00 Diltiazem HCl (Cardizem) 90 mg Q6HR PO Last administered on 11/04/16 11:34; Admin Dose 90 MG; Start 11/03/16 at 18:00 Furosemide (Lasix) 40 mg DAILY PO Last administered on 11/04/16 08:59; Admin Dose 40 MG; Start 11/04/16 at 09:00 Miscellaneous (Pill Splitter) 1 ea UNSCH PRN OTHER; Start 11/03/16 at 13:00 Patient Medication Teaching (Coumadin Booklet) 1 ONCE ONCE .XX; Start 11/03/16 at 16:00; Stop 11/03/16 at 16:00; Status DC Prednisone (Deltasone) 30 mg DAILY PO Last administered on 11/04/16 09:00; Admin Dose 30 MG; Start 11/04/16 at 09:00 Rivaroxaban (Xarelto) 20 mg DAILY PO Last administered on 11/04/16 09:00; Admin Dose 20 MG; Start 11/03/16 at 14:00 Warfarin Sodium (Coumadin) 5 mg DAILY@1600 PO; Start 11/03/16 at 16:00; Stop 11/03 at 16:00; Status DC (Marine Lawrence) Physical Exam General General Appearance: Well Developed, Comfortable, Anxious, Obese (Marine LawrenceP) Eyes Eye Exam: Pupils Equal, Pupils Reactive (Marine LawrenceP) Ears & Nose Ears & Nose Exam: Nasal Mucosa [place] (Marine LawrenceP) Throat Throat Exam: Oral Mucosa [place] & Moist (Marine LawrenceP) Neck Neck Exam: Neck Supple, Trachea Midline (Marine LawrenceP) Pulmonary Resp Exam: Decreased Bases, Diminished Breath Sounds, Poor Inspiratory Effort ( Marine LawrenceP) Cardiology CV Exam: Irregular, Arrhythmia, Tachycardia (Marine LawrenceP) Gastrointestinal/Abdomen GI Exam: Soft, Non-Tender, Bowel Sounds Present, Non-Distended (Marine LawrenceP) Musculoskeletal MS Exam: Joints Intact (Marine Lawrence) Integumentary Skin Exam: Warm, Dry (Marine Lawrence) Extremeties Extremities Exam: Pedal Pulses Palpable, Trace Edema (Marine Lawrence) Neurologic Neuro Exam: Alert, Awake, Oriented, Speech Clear, Moving All Extremities, No Focal Deficits (Marine Lawrence) Psychiatric Psych Exam: Appropriate Responses (Marine Lawrence) VTE Prophylaxis VTE Prophylaxis Meds: Coumadin, Lovenox (Marine Lawrence) Assessment/Plan Problem List: (1) New onset atrial fibrillation (2) Anxiety (3) Hyperlipidemia (4) HTN (hypertension) (5) COPD exacerbation (6) Chronic back pain (7) Cardiomegaly Assessment/Plan Continue with empiric antibiotics, and when necessary cough meds Leukocytosis probable due to steroid use, currently on by mouth prednisone New-onset A. fib, with x-ray findings of cardiomegaly. Heart rate 112, continues, afib. continue with Lasix 40 mg by mouth, continue O2 at 2 L Patient currently on PO Lanoxin, Cardizem 90mg q6hr, monitor for his needs, plan is for rate to be less than 100 and on sustained release tablet Cardiac enzymes negative, appreciate cardiac consult Dr. Pacheco evaluated, appreciate Patient currently been placed on Xarelto Anxiety, chronic, and probable secondary to COPD and breathing issues Xanax when necessary has been ordered. Vital signs monitored, afebrile Hypertension, controlled now, monitor, systolic between 130s and 150s Lovenox/Coumadin for DVT prophylaxis D/W RN D/W Dr. Boss, patient seen on her behalf D/W pt. (Marine Lawrence) Assessment/Plan patient seen and examined agree with above assessment and plan possible discharge to home in am, if heart rate controlled discussed with patietn discussed with Marine AGUILAR labs in am (Lissette Boss MD) Problem Qualifiers (1) Hyperlipidemia: Qualified Code: E78.5 - Hyperlipidemia, unspecified hyperlipidemia type (2) HTN (hypertension): Qualified Code: I10 - Essential hypertension (3) Chronic back pain: Qualified Code: M54.9 - Chronic back pain, unspecified back location, unspecified back pain laterality Marine Lawrence Nov 04, 2016 12:01 Lissette Boss MD Nov 04, 2016 13:20
[2016-11-04] MEDS: AZITHROMYCIN INJ 500 MG in SODIUM CHLOR 0.9% 250 ML INJ 250 ML IV SCH (15:16)
[2016-11-04] MEDS: cefTRIAXone INJ 1,000 MG in SODIUM CHLORIDE 0.9% INJ 100 ML IV SCH (15:16)
[2016-11-04] MEDS: ATORVASTATIN 20 MG TAB PO SCH (21:43)
[2016-11-04] MEDS: ZOLPIDEM TARTRATE 10 MG TAB PO PRN (21:44)
[2016-11-04] MEDS: TAMSULOSIN HCL 0.4 MG CAP PO SCH (21:44)
[2016-11-05] VITALS (10 sets, daily range): BP systolic 133–155; BP diastolic 62–83; PULSE 87–112; RESP 20–22; TEMP 98.3–99.4; O2SAT 91–98
[2016-11-05] MEDS: ACETAMINOPHEN/HYDROcodone 325 MG/5 MG TAB PO PRN ×2 (02:16→15:55)
[2016-11-05] MEDS: ALPRAZolam 0.5 MG TAB PO PRN ×2 (05:24→21:06)
[2016-11-05] MEDS: DILTIAZEM HCL 60 MG TAB PO SCH ×4 (05:24→21:07)
[2016-11-05 07:33] LABS: INTERNATIONAL NORMALIZED RATIO 1.1 RATIO; PROTHROMBIN TIME - PATIENT 12.5 SEC (9.8-11.6)
[2016-11-05 07:37] LABS: AUTOMATED NEUTROPHIL # 11.3 TH/MM3 (1.8-7.7); BASOPHIL % 0.1 % (0.0-2.0); EOSINOPHIL % 0.1 % (0.0-4.0); HEMATOCRIT 40.4 % (39.0-51.0); HEMO FLAGS DIFF FINAL; LYMPH % 8.4 % (9.0-44.0); LYMPHOCYTE # 1.1 TH/MM3 (1.0-4.8); MEAN CELL VOLUME 93.4 FL (80.0-100.0); MEAN CORPUSCULAR HEMOGLOBIN 31.7 PG (27.0-34.0); MEAN CORPUSCULAR HGB CONC 33.9 % (32.0-36.0); NEUT % 85.4 % (16.0-70.0); PLATELET COUNT 208 TH/MM3 (150-450); RED BLOOD COUNT 4.32 MIL/MM3 (4.50-5.90); RED CELL DISTRIBUTION WIDTH 12.9 % (11.6-17.2); WHITE BLOOD COUNT 13.2 TH/MM3 (4.0-11.0)
[2016-11-05] MEDS: RESP: ALBUTEROL 2.5 MG/IPRATROPIUM 0.5 MG NEB (SCH) NEB ×2 (07:39→16:03)
[2016-11-05 07:53] LABS: BICARBONATE 32.1 MEQ/L (21.0-32.0); POTASSIUM 3.8 MEQ/L (3.5-5.1)
[2016-11-05] MEDS: FUROSEMIDE 40 MG TAB PO SCH (08:22)
[2016-11-05] MEDS: DIGOXIN 0.25 MG TAB PO SCH (08:22)
[2016-11-05] MEDS: RIVAROXABAN 20 MG TAB PO SCH (08:22)
[2016-11-05] MEDS: FINASTERIDE 5 MG TAB PO SCH (08:22)
[2016-11-05] MEDS: guaiFENesin E.R. 600 MG TAB PO SCH ×2 (08:22→21:09)
[2016-11-05] MEDS: predniSONE 20 MG TAB PO SCH (08:22)
[2016-11-05] MEDS: SODIUM CHLORIDE 0.9% FLUSH 10 ML FLUSH IV FLUSH SCH ×2 (08:23→21:00)
--- NOTE | 2016-11-05 09:15 | PD.CARD.PN ---
Subjective Subjective Remarks no overnight events resting HR 100's Objective Medications Current Medications Medications (Trade) Dose Ordered Sig/Mic Route Start Time Stop Time Status Last Admin (NS Flush) 2 ml UNSCH PRN IV FLUSH 11/02/16 14:00 (NS Flush) 2 ml BID IV FLUSH 11/02/16 21:00 11/05/16 08:23 (Tylenol) 650 mg Q4H PRN PO 11/02/16 14:00 (Zofran Inj) 4 mg Q6H PRN IVP 11/02/16 14:00 Naloxone HCl 0.4 mg 0.4 mg UNSCH PRN IV 11/02/16 14:00 Ceftriaxone Sodium 1000 mg/ Sodium Chloride 100 ml @ 200 mls/hr Q24H IV 11/02/16 15:00 11/04/16 15:16 (Zithromax Inj/ NS 250 ml Inj) 250 ml @ 250 mls/hr Q24H IV 11/02/16 14:00 11/04/16 15:16 (Lipitor) 20 mg HS PO 11/02/16 21:00 11/04/16 21:43 (Proscar) 5 mg DAILY PO 11/03/16 09:00 11/05/16 08:22 (Flomax) 0.4 mg HS PO 11/02/16 21:00 11/04/16 21:44 ([place] 5-325 Mg) 1 tab Q6H PRN PO 11/02/16 15:15 11/05/16 02:16 (Xanax) 0.5 mg Q8H PRN PO 11/02/16 15:15 11/05/16 05:24 (Mucinex Er) 600 mg BID PO 11/02/16 21:00 11/05/16 08:22 (Robitussin Dm 200-20 Mg/10 ml Liq) 10 ml Q6H PRN PO 11/02/16 15:15 (Catapres) 0.1 mg Q6H PRN PO 11/02/16 15:30 (Deltasone) 30 mg DAILY PO 11/04/16 09:00 11/05/16 08:22 (Ambien) 10 mg HS PRN PO 11/03/16 11:45 11/04/16 21:44 (Pill Splitter) 1 ea UNSCH PRN OTHER 11/03/16 13:00 (Xarelto) 20 mg DAILY PO 11/03/16 14:00 11/05/16 08:22 (Lanoxin) 0.25 mg DAILY PO 11/04/16 09:00 11/05/16 08:22 (Cardizem) 90 mg Q6HR PO 11/03/16 18:00 11/05/16 05:24 (Lasix) 40 mg DAILY PO 11/04/16 09:00 11/05/16 08:22 Vital Signs / I&O Vital Signs Date Time Temp Pulse Resp B/P Pulse Ox O2 Delivery O2 Flow Rate FiO2 11/05/16 08:00 98.7 99 20 151/75 96 11/05/16 07:40 94 21 11/05/16 04:00 98.9 103 22 143/75 95 11/05/16 00:00 98.3 104 20 141/62 95 11/04/16 23:46 95 Nasal Cannula 2.00 11/04/16 20:04 86 11/04/16 20:00 99.6 92 20 157/75 95 11/04/16 16:03 98.6 102 20 148/77 96 11/04/16 12:03 99.0 106 20 144/77 94 11/04/16 09:17 105 I/O 11/04/16 11/04/16 11/04/16 11/05/16 11/05/16 11/05/16 07:00 15:00 23:00 07:00 15:00 23:00 Intake Total 720 ml 480 ml 295 ml 480 ml Balance 720 ml 480 ml 295 ml 480 ml Intake Oral 720 ml 480 ml 480 ml IV Total 295 ml # Voids 2 4 8 # Bowel Movements 0 1 1 Physical Exam GENERAL: Awake, alert, and oriented x 3. Non-focal. SKIN: Warm and dry. HEAD: Normocephalic. EYES: No scleral icterus. No injection or drainage. NECK: Supple, trachea midline. No JVD or lymphadenopathy. CARDIOVASCULAR: Irr Irr 1/6 NOE no gallops, or rubs. RESPIRATORY: Breath sounds equal bilaterally. No accessory muscle use. GASTROINTESTINAL: Abdomen soft, non-tender, nondistended. EXTREMITIES: No cyanosis, or edema. Laboratory Laboratory Tests Test 11/05/16 05:48 White Blood Count 13.2 TH/MM3 Red Blood Count 4.32 MIL/MM3 Hemoglobin 13.7 GM/DL Hematocrit 40.4 % Mean Corpuscular Volume 93.4 FL Mean Corpuscular Hemoglobin 31.7 PG Mean Corpuscular Hemoglobin 33.9 % Concent Red Cell Distribution Width 12.9 % Platelet Count 208 TH/MM3 Mean Platelet Volume 8.7 FL Neutrophils (%) (Auto) 85.4 % Lymphocytes (%) (Auto) 8.4 % Monocytes (%) (Auto) 6.0 % Eosinophils (%) (Auto) 0.1 % Basophils (%) (Auto) 0.1 % Neutrophils # (Auto) 11.3 TH/MM3 Lymphocytes # (Auto) 1.1 TH/MM3 Monocytes # (Auto) 0.8 TH/MM3 Eosinophils # (Auto) 0.0 TH/MM3 Basophils # (Auto) 0.0 TH/MM3 CBC Comment DIFF FINAL Differential Comment Prothrombin Time 12.5 SEC Prothromb Time International 1.1 RATIO Ratio Sodium Level 139 MEQ/L Potassium Level 3.8 MEQ/L Chloride Level 99 MEQ/L Carbon Dioxide Level 32.1 MEQ/L Anion Gap 8 MEQ/L Blood Urea Nitrogen 30 MG/DL Creatinine 1.13 MG/DL Estimat Glomerular Filtration 63 ML/MIN Rate Random Glucose 111 MG/DL Calcium Level 8.9 MG/DL Assessment and Plan Problem List: (1) New onset atrial fibrillation Assessment and Plan: Cont rate control with Cardizem. Transition to long acting Cardizem Cont digoxin Start low dose Lopressor Cont oral anticoagulation Dr. Pacheco will be back in AM Mark Kee MD Nov 05, 2016 09:15
[2016-11-05] MEDS: METOPROLOL TARTRATE 25 MG TAB PO SCH ×2 (10:12→21:08)
--- NOTE | 2016-11-05 10:13 | HHI.PR ---
Subjective Subjective Remarks Resting in bed Awake in rm afib, 100s, 90s at rest. SOB exertional no chest pain alert, hopeful to dc this pm. (Marine Lawrence) Review of Systems Constitutional Constitutional: Fatigue, Weakness Constitutional Remarks 10 point ROS done positives noted at the systems negative are unremarkable ( Marine Lawrence) Pulmonary Respiratory: Coughing, Shortness of Breath (mild) (Marine Lawrence) GI/Abdomen GI/Abdomen Remarks I will regimen normal BM today and yesterday (Marine Lawrence) Musculoskeletal MS: Weakness, Stiffness (Marine Lawrence) Psychiatric Psychiatric: Normal Mood (alert cooperative, but anxious to be out of the hospital hopefully this p.m.), Agitation, Anxiety (at times) (Marine Lawrence) Vitals/Results Intake & Output 11/04/16 11/04/16 11/05/16 15:00 23:00 07:00 Intake Total 480 ml 295 ml 480 ml Balance 480 ml 295 ml 480 ml Intake Oral 480 ml 480 ml IV Total 295 ml # Voids 4 8 # Bowel Movements 1 1 Vital Signs Vital Signs Date Time Temp Pulse Resp B/P Pulse Ox O2 Delivery O2 Flow Rate FiO2 11/05/16 08:00 98.7 99 20 151/75 96 11/05/16 07:40 94 21 11/05/16 04:00 98.9 103 22 143/75 95 11/05/16 00:00 98.3 104 20 141/62 95 11/04/16 23:46 95 Nasal Cannula 2.00 11/04/16 20:04 86 11/04/16 20:00 99.6 92 20 157/75 95 11/04/16 16:03 98.6 102 20 148/77 96 11/04/16 12:03 99.0 106 20 144/77 94 (Marine Lawrence) CBC/BMP: 11/05/16 0548 11/05/16 0548 Lab Results Laboratory Tests Test 11/05/16 05:48 White Blood Count 13.2 TH/MM3 Red Blood Count 4.32 MIL/MM3 Hemoglobin 13.7 GM/DL Hematocrit 40.4 % Mean Corpuscular Volume 93.4 FL Mean Corpuscular Hemoglobin 31.7 PG Mean Corpuscular Hemoglobin 33.9 % Concent Red Cell Distribution Width 12.9 % Platelet Count 208 TH/MM3 Mean Platelet Volume 8.7 FL Neutrophils (%) (Auto) 85.4 % Lymphocytes (%) (Auto) 8.4 % Monocytes (%) (Auto) 6.0 % Eosinophils (%) (Auto) 0.1 % Basophils (%) (Auto) 0.1 % Neutrophils # (Auto) 11.3 TH/MM3 Lymphocytes # (Auto) 1.1 TH/MM3 Monocytes # (Auto) 0.8 TH/MM3 Eosinophils # (Auto) 0.0 TH/MM3 Basophils # (Auto) 0.0 TH/MM3 CBC Comment DIFF FINAL Differential Comment Prothrombin Time 12.5 SEC Prothromb Time International 1.1 RATIO Ratio Sodium Level 139 MEQ/L Potassium Level 3.8 MEQ/L Chloride Level 99 MEQ/L Carbon Dioxide Level 32.1 MEQ/L Anion Gap 8 MEQ/L Blood Urea Nitrogen 30 MG/DL Creatinine 1.13 MG/DL Estimat Glomerular Filtration 63 ML/MIN Rate Random Glucose 111 MG/DL Calcium Level 8.9 MG/DL Imaging Remarks Last Impressions Chest X-Ray 11/02/16 1140 Signed Impressions: Service Date/Time: October 12:51 - CONCLUSION: Cardiomegaly and scarring in the midlungs bilaterally, stable from 2012. No new focal infiltrates seen. Tyson Peña MD Current Medications Active Medications Metoprolol Tartrate (Lopressor) 12.5 mg Q12HR PO; Start 11/05/16 at 10:00 ( Marine LawrenceP) Physical Exam General General Appearance: Well Developed, Comfortable, Anxious, Obese (Marine LawrenceP) Eyes Eye Exam: Pupils Equal, Pupils Reactive (Marine LawrenceP) Ears & Nose Ears & Nose Exam: Nasal Mucosa [place] (Marine LawrenceP) Throat Throat Exam: Oral Mucosa [place] & Moist (Marine LawrenceP) Neck Neck Exam: Neck Supple, Trachea Midline (Marine LawrenceP) Pulmonary Resp Exam: Decreased Bases, Diminished Breath Sounds, Poor Inspiratory Effort ( Melinda,Marine M[employer]) Cardiology CV Exam: Irregular, Arrhythmia, Tachycardia, Dyspnea on Exertion (MilanoMarine michel M. [employer]) Gastrointestinal/Abdomen GI Exam: Soft, Non-Tender, Bowel Sounds Present, Non-Distended (MelindaMarine michel. [employer]) Musculoskeletal MS Exam: Joints Intact ([place],Susan M. [employer]) Integumentary Skin Exam: Warm, Dry (MilanoMarine michel. [employer]) Extremeties Extremities Exam: Pedal Pulses Palpable, Trace Edema ([place],Susan M. [employer]) Neurologic Neuro Exam: Alert, Awake, Oriented, Speech Clear, Moving All Extremities, No Focal Deficits (Melinda,Susan M[employer]) Psychiatric Psych Exam: Appropriate Responses (MelindaMarine michel. [employer]) VTE Prophylaxis VTE Prophylaxis Meds: Coumadin, Lovenox ([place]ine michel. [employer]) Assessment/Plan Problem List: (1) New onset atrial fibrillation (2) Anxiety (3) Hyperlipidemia (4) HTN (hypertension) (5) COPD exacerbation (6) Chronic back pain (7) Cardiomegaly Assessment/Plan Vital signs reviewed, monitored in currently stable Labs reviewed, leukocytosis resolving but still probably due to steroid use, mild dehydration although patient is on by mouth Lasix. Encourage by mouth fluids Continue with empiric antibiotics, and when necessary cough meds Leukocytosis probable due to steroid use, currently on by mouth prednisone New-onset A. fib, with x-ray findings of cardiomegaly. Heart rate 90s at rest 100s while awake, continues, afib. Patient placed on low-dose Lopressor this a.m. to hopefully assist with heart rate control continue with Lasix 40 mg by mouth, continue O2 at 2 L Patient currently on PO Lanoxin, Cardizem 90mg q6hr, monitor for his needs, plan is for rate to be less than 100 and on sustained release tablet Cardiac enzymes negative, appreciate cardiac consult Dr. Pacheco evaluated, appreciate Patient currently been placed on Xarelto Patient anxious to go home hopefully by this p.m. concerned with his having to take off from work. Supportive care and discussed discharge options today with Dr. boss. Ordered incentive spirometry and explained to patient to also use on an outpatient basis. Anxiety, chronic, and probable secondary to COPD and breathing issues Xanax when necessary has been ordered. Vital signs monitored, afebrile Hypertension, controlled now, monitor Xarelto for DVT prophylaxis (Marine Lawrence) Assessment/Plan patient seen and examined breathing ok heart rate elevated Lopressor added by Cardiology monitor overnight discussed with at bed side likely discharge to home in am , if ok with Cardiology discussed with Marine AGUILAR (Lissette Boss MD) Problem Qualifiers (1) Hyperlipidemia: Qualified Code: E78.5 - Hyperlipidemia, unspecified hyperlipidemia type (2) HTN (hypertension): Qualified Code: I10 - Essential hypertension (3) Chronic back pain: Qualified Code: M54.9 - Chronic back pain, unspecified back location, unspecified back pain laterality Marine Lawrence Nov 05, 2016 10:13 Lissette Boss MD Nov 05, 2016 13:21
[2016-11-05] MEDS: cefTRIAXone INJ 1,000 MG in SODIUM CHLORIDE 0.9% INJ 100 ML IV SCH (14:33)
[2016-11-05] MEDS: AZITHROMYCIN INJ 500 MG in SODIUM CHLOR 0.9% 250 ML INJ 250 ML IV SCH (14:33)
[2016-11-05] MEDS: ZOLPIDEM TARTRATE 10 MG TAB PO PRN (21:08)
[2016-11-05] MEDS: TAMSULOSIN HCL 0.4 MG CAP PO SCH (21:08)
[2016-11-05] MEDS: ATORVASTATIN 20 MG TAB PO SCH (21:09)
[2016-11-06] VITALS: BP 151/76; PULSE 86; RESP 18; TEMP 99; O2SAT 95
[2016-11-06] MEDS: RESP: ALBUTEROL 2.5 MG/IPRATROPIUM 0.5 MG NEB (SCH) NEB ×2 (00:31→07:34)
[2016-11-06 04:00] VITALS: BP 147/81; PULSE 101; RESP 22; TEMP 98.4; O2SAT 97
[2016-11-06] MEDS: DILTIAZEM HCL 60 MG TAB PO SCH ×2 (04:56)
[2016-11-06] MEDS: ACETAMINOPHEN/HYDROcodone 325 MG/5 MG TAB PO PRN (06:22)
[2016-11-06 07:28] LABS: INTERNATIONAL NORMALIZED RATIO 1.1 RATIO; PROTHROMBIN TIME - PATIENT 12.1 SEC (9.8-11.6)
[2016-11-06 07:38] VITALS: O2SAT 94
[2016-11-06] MEDS ORDERED: DILTIAZEM-CD 180 MG CAP ER PO ONE (07:45)
--- NOTE | 2016-11-06 07:45 | PD.CARD.PN ---
Subjective Subjective Remarks denies chest pain, shortness of breath or palpitations Objective Vital Signs / I&O Vital Signs Date Time Temp Pulse Resp B/P Pulse Ox O2 Delivery O2 Flow Rate FiO2 11/06/16 07:38 94 Nasal Cannula 2.00 11/06/16 04:00 98.4 101 22 147/81 97 11/06/16 00:00 99.0 86 18 151/76 95 11/05/16 20:35 98 Nasal Cannula 2.00 11/05/16 20:04 98 11/05/16 20:00 99.3 92 20 155/83 91 11/05/16 17:23 112 11/05/16 16:00 99.1 87 20 152/83 97 11/05/16 12:00 99.4 93 20 133/76 94 11/05/16 08:00 98.7 99 20 151/75 96 I/O 11/05/16 11/05/16 11/05/16 11/06/16 11/06/16 11/06/16 07:00 15:00 23:00 07:00 15:00 23:00 Intake Total 480 ml 600 ml 749 ml 0 ml Balance 480 ml 600 ml 749 ml 0 ml Intake Oral 480 ml 600 ml 480 ml 0 ml IV Total 269 ml # Voids 8 4 0 1 # Bowel Movements 1 0 0 0 Physical Exam GENERAL: Well-nourished, well-developed patient in no apparent distress. NECK: No JVD. No carotid bruit. CARDIOVASCULAR: IR IR. S1/S2 no murmur, rub, or gallop. RESPIRATORY: No accessory muscle use. diminished to auscultation. Breath sounds equal bilaterally. GASTROINTESTINAL: Abdomen soft, non-tender, nondistended. MUSCULOSKELETAL: Extremities without clubbing, cyanosis, or edema. Laboratory Laboratory Tests Test 11/06/16 06:05 Prothrombin Time 12.1 SEC Prothromb Time International 1.1 RATIO Ratio Assessment and Plan Problem List: (1) New onset atrial fibrillation Assessment and Plan HR is controlled. [id number] mcg daily, metoprolol 12.5 mg BID and change diltiazem to ER formulation. Xarelto for anticoagulation. F/U with us as outpatient Kailash Ochoa Nov 06, 2016 07:45
[2016-11-06 07:52] VITALS: PULSE 98
[2016-11-06 08:28] VITALS: BP 134/67; PULSE 103; RESP 19; TEMP 97.8; O2SAT 91
[2016-11-06] MEDS: predniSONE 20 MG TAB PO SCH (08:35)
[2016-11-06] MEDS: RIVAROXABAN 20 MG TAB PO SCH (08:36)
[2016-11-06] MEDS: FUROSEMIDE 40 MG TAB PO SCH (08:36)
[2016-11-06] MEDS: METOPROLOL TARTRATE 25 MG TAB PO SCH (08:36)
[2016-11-06] MEDS: guaiFENesin E.R. 600 MG TAB PO SCH (08:36)
[2016-11-06] MEDS: FINASTERIDE 5 MG TAB PO SCH (08:37)
[2016-11-06] MEDS: DIGOXIN 0.25 MG TAB PO SCH (08:37)
[2016-11-06] MEDS: SODIUM CHLORIDE 0.9% FLUSH 10 ML FLUSH IV FLUSH SCH (08:37)
[2016-11-06] MEDS ORDERED: XARE20TA PO (08:46)
[2016-11-06] MEDS ORDERED: DILT360C12 PO (08:46)
[2016-11-06] MEDS ORDERED: DIGO0.25 PO (08:46)
[2016-11-06] MEDS ORDERED: PRED5PAK PO (08:46)
[2016-11-06] MEDS ORDERED: METO25TA3 PO (08:46)
[2016-11-06] MEDS ORDERED: predniSONE 20 MG TAB PO SCH (09:00)
--- NOTE | 2016-11-06 11:49 | HHI.PR ---
Subjective Subjective Remarks Resting in bed Awake SOB improved no chest pain alert, dc today Review of Systems Constitutional Constitutional: Fatigue, Weakness Constitutional Remarks 10 point ROS done positives noted at the systems negative are unremarkable Pulmonary Respiratory: Coughing (improved), Shortness of Breath (improved) GI/Abdomen GI/Abdomen Remarks BM yesterday no issues Musculoskeletal MS: Weakness (improved with heart rate control), Stiffness (improved) Psychiatric Psychiatric: Normal Mood (alert cooperative, but anxious to be out of the hospital hopefully this p.m.), Agitation, Anxiety (at times) Vitals/Results Intake & Output 11/05/16 11/05/16 11/06/16 15:00 23:00 07:00 Intake Total 600 ml 749 ml 0 ml Balance 600 ml 749 ml 0 ml Intake Oral 600 ml 480 ml 0 ml IV Total 269 ml # Voids 4 0 1 # Bowel Movements 0 0 0 Vital Signs Vital Signs Date Time Temp Pulse Resp B/P Pulse Ox O2 Delivery O2 Flow Rate FiO2 11/06/16 08:28 97.8 103 19 134/67 91 11/06/16 07:52 98 11/06/16 07:38 94 Nasal Cannula 2.00 11/06/16 04:00 98.4 101 22 147/81 97 11/06/16 00:00 99.0 86 18 151/76 95 11/05/16 20:35 98 Nasal Cannula 2.00 11/05/16 20:04 98 11/05/16 20:00 99.3 92 20 155/83 91 11/05/16 17:23 112 11/05/16 16:00 99.1 87 20 152/83 97 11/05/16 12:00 99.4 93 20 133/76 94 CBC/BMP: 11/05/16 0548 11/05/16 0548 Lab Results Laboratory Tests Test 11/06/16 06:05 Prothrombin Time 12.1 SEC Prothromb Time International 1.1 RATIO Ratio Physical Exam General General Appearance: Well Developed, Comfortable, Anxious, Obese Eyes Eye Exam: Pupils Equal, Pupils Reactive Ears & Nose Ears & Nose Exam: Nasal Mucosa [place] Throat Throat Exam: Oral Mucosa [place] & Moist Neck Neck Exam: Neck Supple, Trachea Midline Pulmonary Resp Exam: Decreased Bases (improved), Diminished Breath Sounds, Poor Inspiratory Effort Cardiology CV Exam: Irregular, Arrhythmia, Tachycardia, Dyspnea on Exertion Gastrointestinal/Abdomen GI Exam: Soft, Non-Tender, Bowel Sounds Present, Non-Distended Musculoskeletal MS Exam: Joints Intact Integumentary Skin Exam: Warm, Dry Extremeties Extremities Exam: Pedal Pulses Palpable, Trace Edema Neurologic Neuro Exam: Alert, Awake, Oriented, Speech Clear, Moving All Extremities, No Focal Deficits Psychiatric Psych Exam: Appropriate Responses VTE Prophylaxis VTE Prophylaxis Meds: Coumadin, Lovenox Assessment/Plan Problem List: (1) New onset atrial fibrillation (2) Anxiety (3) Hyperlipidemia (4) HTN (hypertension) (5) COPD exacerbation (6) Chronic back pain (7) Cardiomegaly Assessment/Plan Vital signs reviewed, monitored in currently stable Labs reviewed, leukocytosis resolving but still probably due to steroid use, mild dehydration although patient is on by mouth Lasix. Encourage by mouth fluids Continue with empiric antibiotics, and when necessary cough meds Leukocytosis probable due to steroid use, currently on by mouth prednisone New-onset A. fib, with x-ray findings of cardiomegaly. Heart rate 90s more controlled today continues, afib. low-dose Lopressor assist with rate control. 80s while aslee Lasix 40 mg by mouth, continue O2 at 2 L Patient currently on PO Lanoxin, Cardizem changed to SR Patient currently been placed on Xarelto Patient anxious to go home. Stable today after assessment discharge Ordered incentive spirometry and explained to patient to also use on an outpatient basis. Anxiety, chronic, and probable secondary to COPD and breathing issues Xanax when necessary has been ordered. Vital signs monitored, afebrile Hypertension, controlled now, monitor Xarelto for DVT prophylaxis (Marine Lawrence) Assessment/Plan patient seen and examined breathing ok heart rate elevated Lopressor added by Cardiology monitor overnight discussed with at bed side likely discharge to home in am , if ok with Cardiology discussed with Marine AGUILAR (Lissette Boss MD) Problem Qualifiers (1) Hyperlipidemia: Qualified Code: E78.5 - Hyperlipidemia, unspecified hyperlipidemia type (2) HTN (hypertension): Qualified Code: I10 - Essential hypertension (3) Chronic back pain: Qualified Code: M54.9 - Chronic back pain, unspecified back location, unspecified back pain laterality Marine Lawrence Nov 05, 2016 10:13 Lissette Boss MD Nov 05, 2016 13:21 Problem Qualifiers (1) Hyperlipidemia: Qualified Code: E78.5 - Hyperlipidemia, unspecified hyperlipidemia type (2) HTN (hypertension): Qualified Code: I10 - Essential hypertension (3) Chronic back pain: Qualified Code: M54.9 - Chronic back pain, unspecified back location, unspecified back pain laterality Marine Lawrence Nov 06, 2016 11:49
--- NOTE | 2016-11-07 18:13 | HHI.DS ---
Discharge Summary Admission Date Nov 02, 2016 at 13:50 Discharge Date: Nov 06, 2016 Admitting Diagnosis New onset atrial firbrillation, copd exacerbation. (1) COPD exacerbation Diagnosis: Principal (2) New onset atrial fibrillation Diagnosis: Principal (3) HTN (hypertension) Diagnosis: Principal (4) Hyperlipidemia Diagnosis: Secondary (5) Chronic back pain Diagnosis: Secondary (6) Anxiety Diagnosis: Secondary Brief History This was a 76-year-old male with past medical history hypertension, hyperlipidemia, COPD on oxygen at night, chronic back pain. Patient presented to the emergency room with progressive shortness of breath for the last month and half. According to the patient, he was diagnosed with "walking pneumonia" by primary care physician and has been treated with 2 different Z-Paks. Indicates he has continued to feel poorly, more short of breath with any activity. He has a cough that is productive of yellow-green phlegm, he has chills at times but no fever. Has occasional chest pain that is relieved with [place] and burping. Denies any radiation of chest discomfort. He has been using nebulizers at home without any relief. Patient also endorses that he was recently transitioned from Wedron to Tylenol No. 4 for chronic back pain and thinks that this lower potency of medications may have exacerbated his condition. Patient is difficult to examine, he's very anxious and at one point during the examination asked me to leave and not to examine him. CBC/BMP: 11/05/16 0548 11/05/16 0548 Significant Findings Laboratory Tests Test 11/05/16 11/06/16 05:48 06:05 White Blood Count 13.2 TH/MM3 (4.0-11.0) Red Blood Count 4.32 MIL/MM3 (4.50-5.90) Neutrophils (%) (Auto) 85.4 % (16.0-70.0) Lymphocytes (%) (Auto) 8.4 % (9.0-44.0) Neutrophils # (Auto) 11.3 TH/MM3 (1.8-7.7) Prothrombin Time 12.5 SEC 12.1 SEC (9.8-11.6) (9.8-11.6) Carbon Dioxide Level 32.1 MEQ/L (21.0-32.0) Blood Urea Nitrogen 30 MG/DL (7-18) Estimat Glomerular Filtration 63 ML/MIN (>89) Rate Random Glucose 111 MG/DL (74-106) Imaging Last Impressions Chest X-Ray 11/02/16 1140 Signed Impressions: Service Date/Time: October 12:51 - CONCLUSION: Cardiomegaly and scarring in the midlungs bilaterally, stable from 2012. No new focal infiltrates seen. Tyson Peña MD PE at Discharge General Appearance: Well Developed, Comfortable, Anxious, Obese Eyes Eye Exam: Pupils Equal, Pupils Reactive Ears & Nose Ears & Nose Exam: Nasal Mucosa [place] Throat Throat Exam: Oral Mucosa [place] & Moist Neck Neck Exam: Neck Supple, Trachea Midline Pulmonary Resp Exam: Decreased Bases (improved), Diminished Breath Sounds, Poor Inspiratory Effort Cardiology CV Exam: Irregular, Arrhythmia, Tachycardia, Dyspnea on Exertion Gastrointestinal/Abdomen GI Exam: Soft, Non-Tender, Bowel Sounds Present, Non-Distended Musculoskeletal MS Exam: Joints Intact Integumentary Skin Exam: Warm, Dry Extremeties Extremities Exam: Pedal Pulses Palpable, Trace Edema Neurologic Neuro Exam: Alert, Awake, Oriented, Speech Clear, Moving All Extremities, No Focal Deficits Psychiatric Psych Exam: Appropriate Responses VTE Prophylaxis VTE Prophylaxis Meds: Coumadin, Lovenox Hospital Course During emergency room evaluation, patient was evaluated, vital signs were stable, temperature 90.7 a, pulse rate 99, respiratory rate 24 , blood pressure 165/84, sats 93% on room air. ABGs were completed, pH 7.45, PCO2 40, PA O2 70, bicarbonate 27. CBC was essentially unremarkable, WBC 7.8, hemoglobin 13.6, hematocrit 41.1. BMP unremarkable. Troponin was negative. Chest x-ray significant for cardiomegaly, scarring in the mid lungs bilaterally stable from 2012. No new focal infiltrates. EKG was completed, patient was noted in A. fib, heart rate 97. This is a new onset, patient denies any prior history of dysrhythmia. Patient was given IV steroids and DuoNeb's. Patient wants to get moved out of the emergency room to a regular bed. He is complaining of back pain and increasing anxiety. Patient is admitted for further evaluation and treatment. These are the diagnoses that were used to treat this patient and for his plan of care. (1) New onset atrial fibrillation (2) Anxiety (3) Hyperlipidemia (4) HTN (hypertension) (5) COPD exacerbation (6) Chronic back pain (7) Cardiomegaly Assessment/Plan Patient's main hospital diagnosis was his uncontrolled atrial fib. Cardiology was consult could and was a big assistance to control patient's heart rate. Medical management with his cardiac meds assisted in stabilize and this patient in 4 days. She was monitored on telemetry, was monitored throughout his activities such as mobility, to secure heart rate be an attic, will rate that he could tolerate home Vital signs reviewed, every 4 and when necessary throughout this hospital stay. Labs reviewed throughout this hospital stay. one of the things noted was his leukocytosis resolving but still probably due to steroid use, mild dehydration although patient is on by mouth Lasix. Encourage by mouth fluids Continue with empiric antibiotics, and when necessary cough meds Leukocytosis probable due to steroid use, currently on by mouth prednisone New-onset A. fib, with x-ray findings of cardiomegaly. Heart rate 90s more controlled today continues, afib. low-dose Lopressor assist with rate control. 80s while aslee Lasix 40 mg by mouth, continue O2 at 2 L Patient currently on PO Lanoxin, Cardizem changed to SR Patient currently been placed on Xarelto for his blood thinning agents On day of discharge , Patient anxious to go home. Stable today after assessment discharge Ordered incentive spirometry and explained to patient to also use on an outpatient basis. Anxiety, chronic, and probable secondary to COPD and breathing issues Xanax when necessary has been ordered. On day of discharge Hypertension was controlled now, monitor Dr. Boss saw patient on 11/05/16 and documented, breathing ok heart rate elevated, atrial fib Lopressor added by Cardiology monitor overnight discussed with at bed side likely discharge to home in am , if ok with Cardiology Patient was seen in the next a.m., rate was under 100, controlled with his medications. Patient was stable for discharge. Pt Condition on Discharge: Stable Discharge Disposition: Discharge Home Discharge Instructions DIET: Follow Instructions for: Heart Healthy Diet Activities you can perform: Regular-No Restrictions Follow up Referrals: Cardiology - 2 Weeks PCP Follow-up New Medications: Diltiazem CD 24 HR (Diltiazem CD 24 HR) 360 Mg Capcr 360 MG PO DAILY a fib #30 Ref 0 CAP Prednisone (21) 5 mg tab Dose Pack (Prednisone (21) 5 mg tab Dose Pack) 5 Mg Dspk 5 MG PO DIRECTED Inflammation #1 Ref 0 DSPK Digoxin (Digoxin) 0.25 Mg Tab 0.125 MG PO DAILY a fib #30 TAB Metoprolol Tartrate (Metoprolol Tartrate) 25 Mg Tab 12.5 MG PO Q12HR a fib #60 TAB Rivaroxaban (Xarelto) 20 Mg Tab 20 MG PO DAILY Blood Clot Prevention #30 TAB Continued Medications: Acetaminophen-Codeine (Tylenol-Codeine #4) 300-60 mg Tab 1 TAB PO Q4H PRN PAIN Ref 0 TAB Albuterol Neb (Albuterol Neb) 2.5 Mg/3 Ml Neb 2.5 MG NEB Q4HR PRN SHORTNESS OF BREATH #60 Ref 0 NEBULE Alprazolam (Xanax) 1 Mg Tab 1 MG PO BID PRN ANXIETY Ref 0 TAB Atorvastatin (Lipitor) 20 Mg Tab 20 MG PO HS Cholesterol Management #30 Ref 0 TAB Finasteride (Finasteride) 5 Mg Tab 5 MG PO DAILY Do not crush. Manage Prostate Problems #30 Ref 0 TAB Tamsulosin (Tamsulosin) 0.4 Mg Cap 0.4 MG PO HS Manage Prostate Problems #30 Ref 0 CAP Marine Lawrence Nov 07, 2016 18:13
== END 2016-11-06 12:23 | disposition home or self-care (01) | DRG 309 ==
LOC: NEPC 11:16 → NEDA 13:25 → OBSVTOIN 13:50 → N04A 16:58
PROVIDERS: ADMIT Internal Medicine; ATTEND Internal Medicine
DX: I48.91 Unspecified atrial fibrillation (principal); J44.1 Chronic obstructive pulmonary disease with (acute) exacerbation; I10 Essential (primary) hypertension; G89.29 Other chronic pain; M54.9 Dorsalgia, unspecified; E78.5 Hyperlipidemia, unspecified; I51.7 Cardiomegaly; N40.0 Benign prostatic hyperplasia without lower urinary tract symptoms; F41.9 Anxiety disorder, unspecified; E66.9 Obesity, unspecified; Z68.39 Body mass index [BMI] 39.0-39.9, adult; Z87.891 Personal history of nicotine dependence; Z87.01 Personal history of pneumonia (recurrent)
CPT/HCPCS: 36600; 71020; 80048; 80162; 82550; 82552; 82805; 83735; 84443; 84484; 85025; 85610; 93005; 93306; 94150; 94640; 94664; 96374; J0456; J0696; J1650; J1940; J2920; J2930; J7050; J7512; J7613